=== PATIENT | female | born 1960 | race African-American/Black ===

== ENCOUNTER → 2017-03-27 | Outpatient (CLI) | payer BC ==
--- NOTE | 2017-03-27 12:38 | WOMENS IMAGING REPORT ---
EXAM DESCRIPTION: BILAT SCREENING MAMMO W/CAD COMPLETED DATE/TIME: 03/27/2017 9:38 am REASON FOR STUDY: Z12.31, ROUTINE SCREENING MAMMO Z12.31 ENCNTR SCREEN MAMMOGRAM FOR MALIGNANT NEOP LASM OF FREYA COMPARISON: 10/10/2013. TECHNIQUE: Standard craniocaudal and mediolateral oblique views of each breast recorded using digita l acquisition. LIMITATIONS: None. FINDINGS: No masses, calcifications or architectural distortion. No areas of suspicion. Read with the assistance of CAD. .[facility] - R2 Cenova Version 1.3 .[facility] Imaging - R2 Cenova Version 1.3 .[facility] Imaging - R2 Cenova Version 2.4 .[facility] [place] [facility] - R2 Cenova Version 2.4 .[facility] - R2 [employer] Version 9.2 IMPRESSION: NORMAL MAMMOGRAM. BIRADS 1. BREAST DENSITY: b. There are scattered areas of fibroglandular density. BIRAD: 1 NEGATIVE RECOMMENDATION: ROUTINE SCREENING COMMENT: The patient has been notified of the results by letter per MQSA requirements. Additional no tification policies are in place for contacting patient with suspicious or incomplete findings. Quality ID #[id number]: The [employer] recommends an annual screening mammogram for women aged 40 years or over. This facility utilizes a reminder system to ensure that all patients receive reminder letters, and/or direct phone calls for appointments. This includes reminders for routine scr eening mammograms, diagnostic mammograms, or other Breast Imaging Interventions when appropriate. Th is patient will be placed in the appropriate reminder system. The [employer] (ACR) has developed recommendations for screening MRI of the breast s in certain patient populations, to be used in conjunction with mammography. Breast MRI surveillanc e may be appropriate for women with more than 20% lifetime risk of developing breast cancer as deter mined by genetic testing, significant family history of the disease, or history of mantle radiation f or Hodgkins Disease. ACR Practice Guidelines 2008. TECHNICAL DOCUMENTATION: FINDING NUMBER: (1) ASSESSMENT: (1) JOB ID: [id number] [employer]- All Rights Reserved
== END ==
LOC: WI 09:09
PROVIDERS: ATTEND Internal Medicine
DX: Z12.31 Encounter for screening mammogram for malignant neoplasm of breast (principal)
CPT/HCPCS: 77067; G0202

== ENCOUNTER 2017-04-20 10:40 | Observation (INO) | payer BC ==
[2017-04-20 12:39] LABS: HEMATOCRIT 36.2 % (36.0-47.0); HGB HCT DIFFERENCE -3.2; MEAN CORPUSCULAR HEMOGLOBIN 20.6 pg (27.0-33.4); MEAN CORPUSCULAR HGB CONC 30.3 g/dL (32.0-36.0); MEAN CORPUSCULAR VOLUME 68 fl (80-97); RED BLOOD COUNT 5.32 10^6/uL (3.72-5.28); RED CELL DISTRIBUTION WIDTH 15.8 % (11.5-14.0); WHITE BLOOD COUNT 5.7 10^3/uL (4.0-10.5)
[2017-04-20 13:01] LABS: ALANINE AMINOTRANSFERASE 28 U/L (9-52); ALBUMIN 3.9 g/dL (3.5-5.0); ALKALINE PHOSPHATASE 79 U/L (38-126); ANION GAP 8 (5-19); ASPARTATE AMINO TRANSFERASE 25 U/L (14-36); BILIRUBIN,DIRECT 0.2 mg/dL (0.0-0.4); BILIRUBIN,TOTAL 0.5 mg/dL (0.2-1.3); BLOOD UREA NITROGEN 12 mg/dL (7-20); CALCIUM 10.1 mg/dL (8.4-10.2); CARBON DIOXIDE 28 mmol/L (22-30); CHLORIDE 107 mmol/L (98-107); CREATINE KINASE 237 U/L (30-135); CREATININE RESULT 0.83 mg/dL (0.52-1.25); GLUCOSE 89 mg/dL (75-110); POTASSIUM 4.6 mmol/L (3.6-5.0); SODIUM 142.9 mmol/L (137-145); TOTAL PROTEIN 7.9 g/dL (6.3-8.2)
[2017-04-20 13:13] LABS: CREATINE KINASE MB 1.52 ng/mL (<4.55)
[2017-04-20 13:16] LABS: TROPONIN I < 0.012 ng/mL
[2017-04-20 13:31] LABS: THYROID STIMULATING HORMONE 1.19 uIU/mL (0.47-4.68)
[2017-04-20 14:58] LABS: APPEARANCE,URINE CLEAR; BILIRUBIN,URINE NEGATIVE (NEGATIVE); GLUCOSE, URINE NEGATIVE (NEGATIVE); KETONES,URINE NEGATIVE (NEGATIVE); LEUKOCYTE ESTERASE,URINE NEGATIVE (NEGATIVE); NITRITE,URINE NEGATIVE (NEGATIVE); PROTEIN,URINE NEGATIVE (NEGATIVE); URINE SPECIFIC GRAVITY 1.009; UROBILINOGEN,URINE NEGATIVE mg/dL (<2.0)
[2017-04-20] MEDS ORDERED: HYDROMORPHONE HCL INJ/PF 2 MG/ML AMPULE IV PRN (20:58)
[2017-04-20 21:08] LABS: CREATINE KINASE MB 1.13 ng/mL (<4.55); TROPONIN I < 0.012 ng/mL
--- NOTE | 2017-04-20 22:23 | EKG REPORT ---
SEVERITY:- OTHERWISE NORMAL ECG - SINUS RHYTHM ATRIAL PREMATURE COMPLEX : Confirmed by: Anaid Cunha 20-Apr-2017 22:22:45
[2017-04-21 05:42] LABS: TROPONIN I < 0.012 ng/mL
[2017-04-21] MEDS: ACETAMINOPHEN 325 MG TABLET PO PRN ×2 (07:44→15:46)
--- NOTE | 2017-04-21 08:09 | RADIOLOGY REPORT (SQ) ---
EXAM DESCRIPTION: CHEST PA/LAT COMPLETED DATE/TIME: 04/20/2017 7:27 pm REASON FOR STUDY: lumbar radiculopathy COMPARISON: July 2016 EXAM PARAMETERS: NUMBER OF VIEWS: two views TECHNIQUE: Digital Frontal and Lateral radiographic views of the chest acquired. RADIATION DOSE: NA LIMITATIONS: none FINDINGS: LUNGS AND PLEURA: No opacities, masses or pneumothorax. No pleural effusion. MEDIASTINUM AND HILAR STRUCTURES: No masses or contour abnormalities. HEART AND VASCULAR STRUCTURES: Heart normal size. No evidence for failure. BONES: No acute findings. HARDWARE: None in the chest. OTHER: No other significant finding. IMPRESSION: NO SIGNIFICANT RADIOGRAPHIC FINDING IN THE CHEST. TECHNICAL DOCUMENTATION: JOB ID: [id number] [employer]- All Rights Reserved
[2017-04-21] MEDS ORDERED: (PENDING PHARMACY ID) (Lisinopril/Hydrochlorothiazide [Lisinopril-Hctz 20-25 Mg Tab] 1 TAB PO SCH (10:00)
[2017-04-21] MEDS: LISINOPRIL 10 MG TABLET PO SCH (10:05)
[2017-04-21] MEDS: FERROUS SULFATE 325 MG TABLET PO SCH (10:05)
[2017-04-21] MEDS: HYDROCHLOROTHIAZIDE 25 MG TABLET PO SCH (10:05)
--- NOTE | 2017-04-21 14:16 | RADIOLOGY REPORT (SQ) ---
EXAM DESCRIPTION: MRI LUMBAR SPINE COMBO COMPLETED DATE/TIME: 04/20/2017 8:24 pm REASON FOR STUDY: lumbar radiculopathy COMPARISON: None. TECHNIQUE: Sagittal and Axial imaging includes T1, T1 post gadolinium, T2, STIR and gradient echo se quences. Coronal T2/HASTE imaging. CONTRAST TYPE AND DOSE: 20 mL Multihance. RENAL FUNCTION: Creatinine 0.83 LIMITATIONS: None. FINDINGS: VISUALIZED UPPER ABDOMEN: Limited evaluation. No acute or suspicious findings suggested. SEGMENTATION: No transitional anatomy. The lowest well-developed disc space is labeled L5-S1. ALIGNMENT: Anatomic. VERTEBRAE: Intact. No fractures. BONE MARROW: Mild fatty reactive vertebral body endplate changes anteriorly throughout the lumbar spi ne. DISC SIGNAL: Diffuse decreased T2 weighted intervertebral disc signal. POSTERIOR ELEMENTS: Generally intact. No pars defect evident. HARDWARE: None in the spine. CORD AND CONUS: Normal in size and signal intensity. Conus at the T12-L1 level. SOFT TISSUES: No aortic aneurysm seen. No bulky retroperitoneal adenopathy or mass. No paraspinal mas s or fluid. T11-12: At the upper edge of the field of view. No central or foraminal stenosis. Mild bilateral f acet hypertrophy. T12-L1: No central or foraminal stenosis. Mild bilateral facet hypertrophy. L1-L2: No significant spinal stenosis or exit foraminal stenosis. Mild bilateral facet hypertrophy L2-L3: No significant spinal stenosis or exit foraminal stenosis. Mild bilateral facet hypertrophy L3-L4: Mild diffuse posterior disc bulging and moderate bilateral facet and ligament hypertrophy caus e borderline central canal narrowing. No significant foraminal stenosis. L4-L5: Broad diffuse posterior disc bulge left greater than right and bulky bilateral facet hypertrop hy left greater than right is present. This causes borderline central canal narrowing and slightly a symmetric flattening of the thecal sac left greater than right at the level of the lateral recess con taining the proximal L5 nerve roots. This is best shown on axial T2 images 23 and 24. There is very mild posterior disc margin enhancement in this area on postcontrast axial T1 image 24. On STIR imag es there is fluid in the bilateral L4-5 facet joints and some edema in the soft tissues surrounding t he left L4-5 facet joint. Mild to moderate bilateral foraminal narrowing is present without exiting L4 nerve root impingement. No abnormal L4 nerve root contrast-enhancement. L5-S1: No significant spinal stenosis or exit foraminal stenosis. Mild bilateral facet hypertrophy SACRUM: Visualized upper sacrum intact. ENHANCEMENT: Minimal posterior disc margin enhancement at L4-5 along the annular tear. Bilateral L4- 5 facet joint synovial enhancement and soft tissue enhancement around the left L4-5 facet joint. OTHER: No other significant findings. IMPRESSION: Degenerative changes most pronounced at L4-5 as above. TECHNICAL DOCUMENTATION: JOB ID: [id number] [employer]- All Rights Reserved
[2017-04-21] MEDS ORDERED: METHYLPREDNISOLONE INJ 125 MG/2 ML SDV IV ONE (15:30)
[2017-04-21] MEDS ORDERED: METHYLPREDNISOLONE INJ 125 MG/2 ML SDV ONE (15:50)
--- NOTE | 2017-04-21 18:17 | PDOC H&P ---
History of Present Illness Admission Date/PCP: 04/21/17 01:49 CANDIDA ROCK MD History of Present Illness: PADMINI MCARTHUR is a 56 year old female, she came to the office for evaluation of chest pain, back pain with radiculopathy, the chest pain was atypical in character, she was more concerned about the back pain with radicular symptoms going down the legs and affecting ambulation. She was admitted directly from the office into the hospital for evaluation of her symptoms. MRI of the lumbar spine was done, showed broad diffuse posterior bulge left more than right, bulky bilateral facet hypertrophy left more than right. This causes borderline central canal narrowing slightly asymmetric flattening of thecal sac left more than right at the level of lateral recess. Also found was posterior disc margin enhancement. There is fluid in the bilateral L4-L5 facet joint also some edema in the soft tissues surrounding the left L4-L5 facet joint. There is mild to moderate bilateral foraminal narrowing. She was also admitted to rule out acute coronary syndrome, cardiac enzymes were negative for acute myocardial infarction Past Medical History Cardiac Medical History: Reports: Hyperlipidema, Hypertension Pulmonary Medical History: Reports: Asthma Hematology: Reports: Anemia Past Surgical History Past Surgical History: Reports: Tubal Ligation Social History Smoking Status: Never Smoker Frequency of Alcohol Use: None Hx Recreational Drug Use: No Hx Prescription Drug Abuse: No Family History Family History: Reviewed & Not Pertinent Parental Family History Reviewed: Yes Children Family History Reviewed: Yes Sibling(s) Family History Reviewed.: Yes Medication/Allergy Home Medications: Ferrous Sulfate [Feosol 325 mg Tablet] 325 mg PO DAILY 04/20/17 Lisinopril/Hydrochlorothiazide [Lisinopril-Hctz 20-25 mg Tab] 1 tab PO DAILY Allergies/Adverse Reactions: Penicillins Allergy (Verified 03/25/13 09:55) Review of Systems Constitutional: ABSENT: as per HPI, anorexia, chills, fatigue, fever(s), headache(s), night sweats, weakness, weight gain, weight loss, other Eyes: ABSENT: visual disturbances Ears: ABSENT: hearing changes Cardiovascular: PRESENT: chest pain Respiratory: ABSENT: cough, hemoptysis Gastrointestinal: ABSENT: abdominal pain, constipation, diarrhea, hematemesis, hematochezia, nausea, vomiting Genitourinary: ABSENT: dysuria, hematuria Musculoskeletal: PRESENT: as per HPI Integumentary: ABSENT: rash, wounds Neurological: ABSENT: abnormal gait, abnormal speech, confusion, dizziness, focal weakness, syncope Psychiatric: ABSENT: anxiety, depression, homidical ideation, suicidal ideation Endocrine: ABSENT: cold intolerance, heat intolerance, menstrual abnormalities, polydipsia, polyuria Hematologic/Lymphatic: ABSENT: easy bleeding, easy bruising, lymphadenopathy Physical Exam Vital Signs: Temp Pulse Resp BP Pulse Ox 97.9 F 52 L 18 144/66 H 98 04/21/17 11:44 04/21/17 14:00 04/21/17 11:44 04/21/17 11:44 04/21/17 11:44 Intake & Output 04/20/17 04/21/17 04/22/17 06:59 06:59 06:59 Intake Total 525 1173 Output Total 3 Balance 525 1170 Weight 100.4 kg General appearance: PRESENT: no acute distress, well-developed, well-nourished Head exam: PRESENT: atraumatic, normocephalic Eye exam: PRESENT: conjunctiva pink, EOMI, PERRLA. ABSENT: scleral icterus Ear exam: PRESENT: normal external ear exam Mouth exam: PRESENT: moist, tongue midline Neck exam: PRESENT: full ROM Respiratory exam: PRESENT: clear to auscultation lorena Cardiovascular exam: PRESENT: RRR, +S1, +S2 Pulses: PRESENT: normal dorsalis pedis pul, +2 pedal pulses bilateral Vascular exam: PRESENT: normal capillary refill GI/Abdominal exam: PRESENT: normal bowel sounds, soft Rectal exam: PRESENT: deferred Neurological exam: PRESENT: alert, awake, oriented to person, oriented to place , oriented to time, oriented to situation, CN II-XII grossly intact. ABSENT: motor sensory deficit Psychiatric exam: PRESENT: appropriate affect, normal mood. ABSENT: homicidal ideation, suicidal ideation Skin exam: PRESENT: dry, intact, warm Results Laboratory Results: 04/20/17 12:30 04/20/17 12:30 04/20/17 04/20/17 04/20/17 12:30 12:30 20:24 Creatine Kinase 237 H 217 H CK-MB (CK-2) 1.52 Troponin I < 0.012 04/20/17 04/21/17 04/21/17 20:24 04:45 04:45 Creatine Kinase 164 H CK-MB (CK-2) 1.13 0.90 Troponin I < 0.012 < 0.012 Impressions: Chest X-Ray 04/20/17 00:00 IMPRESSION: NO SIGNIFICANT RADIOGRAPHIC FINDING IN THE CHEST. Lumbar Spine MRI 04/20/17 00:00 IMPRESSION: Degenerative changes most pronounced at L4-5 as above. Assessment & Plan - Diagnosis (1) Spinal stenosis of lumbar region with radiculopathy Is this a current diagnosis for this admission?: YesPlan: She is admitted for evaluation and management of the lumbar stenosis (2) Chest pain Qualifiers: Chest pain type: unspecified Qualified Code(s): R07.9 - Chest pain, unspecified Is this a current diagnosis for this admission?: Yes
--- NOTE | 2017-04-21 18:25 | PDOC DISCHARGE SUMMARY ---
General - Admit/Disc Date/PCP Admission Date/Primary Care Provider: 04/21/17 01:49 CANDIDA ROCK MD Discharge Date: 04/21/17 - Discharge Diagnosis (1) Spinal stenosis of lumbar region with radiculopathy Is this a current diagnosis for this admission?: Yes (2) Chest pain Is this a current diagnosis for this admission?: Yes - Additional Information Discharge Diet: Regular Discharge Activity: Activity As Tolerated Home Medications: Ferrous Sulfate [Feosol 325 mg Tablet] 325 mg PO DAILY 04/20/17 Lisinopril/Hydrochlorothiazide [Lisinopril-Hctz 20-25 mg Tab] 1 tab PO DAILY Prednisone 10 mg PO DAILY #12 tablet 04/21/17 Pregabalin [Lyrica 50 Mg Capsule] 50 mg PO Q8H #90 capsule 04/21/17 History of Present Illness History of Present Illness: PADMINI MCARTHUR is a 56 year old female, she came to the office for evaluation of chest pain, back pain with radiculopathy, the chest pain was atypical in character, she was more concerned about the back pain with radicular symptoms going down the legs and affecting ambulation. She was admitted directly from the office into the hospital for evaluation of her symptoms. MRI of the lumbar spine was done, showed broad diffuse posterior bulge left more than right, bulky bilateral facet hypertrophy left more than right. This causes borderline central canal narrowing slightly asymmetric flattening of thecal sac left more than right at the level of lateral recess. Also found was posterior disc margin enhancement. There is fluid in the bilateral L4-L5 facet joint also some edema in the soft tissues surrounding the left L4-L5 facet joint. There is mild to moderate bilateral foraminal narrowing. She was also admitted to rule out acute coronary syndrome, cardiac enzymes were negative for acute myocardial infarction Hospital Course Hospital Course: She was admitted for observation, she has lumbar radiculopathy, MRI confirmed spinal stenosis. She also had chest pain, 3 sets of enzymes were negative for acute OR. She was treated with IV Solu-Medrol and Toradol Physical Exam Vital Signs: Temp Pulse Resp BP Pulse Ox 97.9 F 52 L 18 144/66 H 98 04/21/17 11:44 04/21/17 14:00 04/21/17 11:44 04/21/17 11:44 04/21/17 11:44 Intake & Output 04/20/17 04/21/17 04/22/17 06:59 06:59 06:59 Intake Total 525 1173 Output Total 3 Balance 525 1170 Weight 100.4 kg General appearance: PRESENT: no acute distress, well-developed, well-nourished Head exam: PRESENT: atraumatic, normocephalic Eye exam: PRESENT: conjunctiva pink, EOMI, PERRLA. ABSENT: scleral icterus Ear exam: PRESENT: normal external ear exam Mouth exam: PRESENT: moist, tongue midline Neck exam: PRESENT: full ROM Respiratory exam: PRESENT: clear to auscultation lorena Cardiovascular exam: PRESENT: RRR, +S1, +S2 Vascular exam: PRESENT: normal capillary refill GI/Abdominal exam: PRESENT: normal bowel sounds, soft Rectal exam: PRESENT: deferred Neurological exam: PRESENT: alert, awake, oriented to person, oriented to place , oriented to time, oriented to situation, CN II-XII grossly intact. ABSENT: motor sensory deficit Psychiatric exam: PRESENT: appropriate affect, normal mood Skin exam: PRESENT: dry, intact, warm Results Laboratory Results: 04/20/17 12:30 04/20/17 12:30 04/20/17 04/20/17 04/20/17 12:30 12:30 20:24 Creatine Kinase 237 H 217 H CK-MB (CK-2) 1.52 Troponin I < 0.012 04/20/17 04/21/17 04/21/17 20:24 04:45 04:45 Creatine Kinase 164 H CK-MB (CK-2) 1.13 0.90 Troponin I < 0.012 < 0.012 Impressions: Chest X-Ray 04/20/17 00:00 IMPRESSION: NO SIGNIFICANT RADIOGRAPHIC FINDING IN THE CHEST. Lumbar Spine MRI 04/20/17 00:00 IMPRESSION: Degenerative changes most pronounced at L4-5 as above.
[2017-04-21] MEDS ORDERED: KETOROLAC TROMETHAMINE INJ/PF 30 MG/1 ML SDV IV ONE (19:00)
[2017-04-21] MEDS: METHYLPREDNISOLONE INJ 125 MG/2 ML SDV IV SCH (21:30)
[2017-04-22] MEDS: KETOROLAC TROMETHAMINE INJ/PF 30 MG/1 ML SDV IV SCH ×3 (01:14→11:29)
[2017-04-22] MEDS: METHYLPREDNISOLONE INJ 125 MG/2 ML SDV IV SCH ×2 (06:29→14:15)
[2017-04-22] MEDS: FERROUS SULFATE 325 MG TABLET PO SCH (11:28)
[2017-04-22] MEDS: HYDROCHLOROTHIAZIDE 25 MG TABLET PO SCH (11:28)
[2017-04-22] MEDS: LISINOPRIL 10 MG TABLET PO SCH (11:29)
[2017-04-22 11:38] LABS: CREATININE URINE 68.5 mg/dL (Not Estab.); MICROALBUMIN URINE 3.1 ug/mL (Not Estab.)
[2017-04-22 13:39] VITALS: BP 138/63
== END 2017-04-22 14:36 | disposition home or self-care (01) ==
LOC: 3S 10:40 → UNDOADMOB 10:40 → 3S 04-21 01:49
PROVIDERS: ADMIT Internal Medicine; ATTEND Internal Medicine
DX: R07.89 Other chest pain (principal); M51.16 Intervertebral disc disorders with radiculopathy, lumbar region; M48.06 Spinal stenosis, lumbar region; I10 Essential (primary) hypertension; D64.9 Anemia, unspecified; R06.00 Dyspnea, unspecified; J45.909 Unspecified asthma, uncomplicated; Z79.899 Other long term (current) drug therapy
CPT/HCPCS: 82043; 82570; 36415 ×2; 84439; 82553 ×2; 82550 ×2; 84443; 85027; 80076; 80048; 81001; 84484 ×2; 72158; 71020; 93005; 93010; A9577; J2930 ×2; J1885 ×2; G0378; G0379

== ENCOUNTER 2017-05-17 14:54 | Emergency (ER) | payer BC ==
[2017-05-17] MEDS ORDERED: ONDANSETRON 4 MG TAB.RAPDIS PO ONE (16:04)
--- NOTE | 2017-05-17 16:05 | ER Document Report ---
ED Medical Screen (RME) - General Chief Complaint: Dizziness Stated Complaint: VOMITING Time Seen by Provider: 05/17/17 15:57 Mode of Arrival: Ambulatory Information source: Patient TRAVEL OUTSIDE OF THE [place] IN LAST 30 DAYS: No - HPI Onset: This morning Onset/Duration: Gradual Quality of pain: No pain Associated Symptoms: Nausea, Vomiting Exacerbated by: Denies Relieved by: Denies Notes: 05/17/17 16:04 Patient is a 56-year-old female who presents with several hours of dizziness and 2 episodes of vomiting. No chest pain or shortness of breath. No fevers or chills. No known ill contacts or recent travel. No syncope. Patient is able to tolerate oral intake. 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" Renal/ Medical History: Denies: Hx Peritoneal Dialysis Past Surgical History: Reports: Hx Abdominal Surgery - Hernia Repair, Hx Tubal Ligation - Immunizations Hx Diphtheria, Pertussis, Tetanus Vaccination: No - 2013 Review of Systems - Review of Systems Gastrointestinal: Nausea, Vomiting Neurological/Psychological: Other - Dizziness -: Yes All other systems reviewed and negative Physical Exam - Vital signs Vitals: Temp Pulse Resp BP Pulse Ox 97.7 F 54 L 16 150/61 H 97 05/17/17 15:08 05/17/17 15:08 05/17/17 15:08 05/17/17 15:08 05/17/17 15:08 Interpretation: Normal - General General appearance: Appears well, Alert - HEENT Head: Normocephalic, Atraumatic Eyes: Normal Pupils: PERRL - Respiratory Respiratory status: No respiratory distress Chest status: Nontender Breath sounds: Normal Chest palpation: Normal - Cardiovascular Rhythm: Regular Heart sounds: Normal auscultation Murmur: No - Abdominal Inspection: Normal Distension: No distension Bowel sounds: Normal Tenderness: Nontender Organomegaly: No organomegaly - Back Back: Normal, Nontender - Extremities General upper extremity: Normal inspection, Nontender, Normal color, Normal ROM , Normal temperature General lower extremity: Normal inspection, Nontender, Normal color, Normal ROM , Normal temperature, Normal weight bearing. No: Karla's sign - Neurological Neuro grossly intact: Yes Cognition: Normal Orientation: AAOx4 [place] Coma Scale Eye Opening: Spontaneous [place] Coma Scale Verbal: Oriented Rajesh Coma Scale Motor: Obeys Commands [place] Coma Scale Total: 15 Speech: Normal Motor strength normal: LUE, RUE, LLE, RLE Sensory: Normal - Psychological Associated symptoms: Normal affect, Normal mood - Skin Skin Temperature: Warm Skin Moisture: Dry Skin Color: Normal Course - Vital Signs Vital signs: Temp Pulse Resp BP Pulse Ox 97.7 F 54 L 16 150/61 H 97 05/17/17 15:08 05/17/17 15:08 05/17/17 15:08 05/17/17 15:08 05/17/17 15:08
[2017-05-17 16:52] LABS: ABSOLUTE EOSINOPHILS # (AUTO) 0.2 10^3/uL (0.0-0.6); ABSOLUTE LYMPHOCYTES (AUTO) 1.4 10^3/uL (0.5-4.7); ABSOLUTE MONOCYTES (AUTO) 0.5 10^3/uL (0.1-1.4); ABSOLUTE NEUT (AUTO) 4.1 10^3/uL (1.7-8.2); BASOPHILS % (AUTO) 0.6 % (0-2); EOSINOPHILS % (AUTO) 2.7 % (0-6); HEMATOCRIT 38.8 % (36.0-47.0); HEMOGLOBIN 11.7 g/dL (12.0-15.5); HGB HCT DIFFERENCE -3.7; LYMPHOCYTES % (AUTO) 22.4 % (13-45); MEAN CORPUSCULAR HEMOGLOBIN 20.7 pg (27.0-33.4); MEAN CORPUSCULAR HGB CONC 30.2 g/dL (32.0-36.0); MEAN CORPUSCULAR VOLUME 69 fl (80-97); MONOCYTES % (AUTO) 8.1 % (3-13); RED BLOOD COUNT 5.67 10^6/uL (3.72-5.28); RED CELL DISTRIBUTION WIDTH 16.5 % (11.5-14.0); SEGMENTED NEUTROPHILS % (AUTO) 66.2 % (42-78); WHITE BLOOD COUNT 6.2 10^3/uL (4.0-10.5)
[2017-05-17 17:11] LABS: ALANINE AMINOTRANSFERASE 28 U/L (9-52); ALBUMIN 4.2 g/dL (3.5-5.0); ALKALINE PHOSPHATASE 80 U/L (38-126); ANION GAP 9 (5-19); ASPARTATE AMINO TRANSFERASE 25 U/L (14-36); BILIRUBIN,DIRECT 0.3 mg/dL (0.0-0.4); BILIRUBIN,TOTAL 0.5 mg/dL (0.2-1.3); BLOOD UREA NITROGEN 10 mg/dL (7-20); CALCIUM 10.1 mg/dL (8.4-10.2); CARBON DIOXIDE 29 mmol/L (22-30); CHLORIDE 105 mmol/L (98-107); CREATININE RESULT 0.74 mg/dL (0.52-1.25); GLUCOSE 89 mg/dL (75-110); POTASSIUM 4.5 mmol/L (3.6-5.0); SODIUM 142.9 mmol/L (137-145); TOTAL PROTEIN 8.3 g/dL (6.3-8.2)
[2017-05-17 17:27] LABS: APPEARANCE,URINE CLEAR; BILIRUBIN,URINE NEGATIVE (NEGATIVE); GLUCOSE, URINE NEGATIVE (NEGATIVE); KETONES,URINE NEGATIVE (NEGATIVE); LEUKOCYTE ESTERASE,URINE NEGATIVE (NEGATIVE); NITRITE,URINE NEGATIVE (NEGATIVE); PROTEIN,URINE NEGATIVE (NEGATIVE); URINE SPECIFIC GRAVITY 1.008; UROBILINOGEN,URINE NEGATIVE mg/dL (<2.0)
--- NOTE | 2017-05-17 18:32 | ER Document Report ---
ED Dizziness/Weakness - General Chief Complaint: Dizziness Stated Complaint: VOMITING Time Seen by Provider: 05/17/17 15:57 Mode of Arrival: Ambulatory Notes: The patient is a 56-year-old female who presents with feeling like the room is spinning over the past day. She vomited twice, but was not feeling nauseous prior to this. She has never had vertigo before. She is currently asymptomatic on my evaluation. She received 8 mg Zofran in triage prior to my arrival. Patient denies headache, ataxia, numbness, tingling, blurry vision, fevers, chest pain, shortness of breath, abdominal pain, urinary symptoms or head injury. TRAVEL OUTSIDE OF THE [place] IN LAST 30 DAYS: No - Related Data Allergies/Adverse Reactions: Penicillins Allergy (Verified 05/17/17 15:07) Past Medical History - General Information source: Patient, [facility] Records - Social History Smoking Status: Never Smoker Chew tobacco use (# tins/day): No Frequency of alcohol use: None Drug Abuse: None Family History: Reviewed & Not Pertinent Patient has suicidal ideation: No Patient has homicidal ideation: No - Past Medical History Cardiac Medical History: Reports: Hx Hypercholesterolemia, Hx Hypertension Pulmonary Medical History: Reports: Hx Asthma Endocrine Medical History: Reports: Hx Diabetes Mellitus Type 2 - "borderline" Renal/ Medical History: Denies: Hx Peritoneal Dialysis Past Surgical History: Reports: Hx Abdominal Surgery - Hernia Repair, Hx Tubal Ligation - Immunizations Hx Diphtheria, Pertussis, Tetanus Vaccination: No - 2012 Review of Systems - Review of Systems Notes: REVIEW OF SYSTEMS: CONSTITUTIONAL: -fevers, -chills EENT: -eye pain, -difficulty swallowing, -nasal congestion CARDIOVASCULAR:-chest pain, -syncope. RESPIRATORY: -cough, -SOB GASTROINTESTINAL: -abdominal pain, -nausea, +vomiting, -diarrhea GENITOURINARY: -dysuria, -hematuria MUSCULOSKELETAL: -back pain, -neck pain SKIN: -rash or skin lesions. HEMATOLOGIC: -easy bruising or bleeding. LYMPHATIC: -swollen, enlarged glands. NEUROLOGICAL: -altered mental status or loss of consciousness, -headache, + vertiginous symptoms PSYCHIATRIC: -anxiety, -depression. ALL OTHER SYSTEMS REVIEWED AND NEGATIVE. Physical Exam - Vital signs Vitals: Temp Pulse Resp BP Pulse Ox 97.7 F 54 L 16 150/61 H 97 05/17/17 15:08 05/17/17 15:08 05/17/17 15:08 05/17/17 15:08 05/17/17 15:08 - Notes Notes: PHYSICAL EXAMINATION: GENERAL: Well-appearing, well-nourished and in no acute distress. HEAD: Atraumatic, normocephalic. EYES: Pupils equal round and reactive to light, extraocular movements intact, sclera anicteric, conjunctiva are normal, no ENT: nares patent, oropharynx clear without exudates. Moist mucous membranes. NECK: Normal range of motion, supple without lymphadenopathy LUNGS: Breath sounds clear to auscultation bilaterally and equal. No wheezes rales or rhonchi. HEART: Regular rate and rhythm without murmurs ABDOMEN: Soft, nontender, normoactive bowel sounds. No guarding, no rebound. No masses appreciated. EXTREMITIES: Normal range of motion, no pitting or edema. No cyanosis. NEUROLOGICAL: Cranial nerves grossly intact. Normal speech, normal gait. Normal sensory and motor exams. PSYCH: Normal mood, normal affect. SKIN: Warm, Dry, normal turgor, no rashes or lesions noted. Course - Re-evaluation Re-evalutation: Patient is no longer having any symptoms. After Zofran, she is tolerating fluids. Pt has no posterior cerebellar signs on exam. No ataxia and walking with a steady gait. Labs are unremarkable. Will discharge patient home on meclizine, Zofran and instructions to follow with her primary care physician. - Vital Signs Vital signs: Temp Pulse Resp BP Pulse Ox 98.0 F 48 L 16 138/63 H 100 05/17/17 18:53 05/17/17 18:53 05/17/17 18:53 05/17/17 18:53 05/17/17 18:53 - Laboratory Result Diagrams: 05/17/17 16:40 05/17/17 16:40 Laboratory results interpreted by me: 05/17/17 05/17/17 16:40 16:40 RBC 5.67 H Hgb 11.7 L MCV 69 L MCH 20.7 L MCHC 30.2 L RDW 16.5 H Total Protein 8.3 H - EKG Interpretation by Nh EKG shows normal: Sinus rhythm, [place], Intervals, QRS Complexes, ST-T Waves Rate: Bradycardia Discharge - Discharge Clinical Impression: Vertiginous syndrome Qualifiers: Laterality: unspecified laterality Qualified Code(s): H81.90 - Unspecified disorder of vestibular function, unspecified ear Vomiting Qualifiers: Vomiting type: unspecified Vomiting Intractability: non-intractable Nausea presence: unspecified Qualified Code(s): R11.10 - Vomiting, unspecified Condition: Good Disposition: HOME, SELF-CARE Additional Instructions: Vertigo You have experienced an episode of vertigo -- a whirling dizziness which may be accompanied by nausea and vomiting or staggering. Vertigo is often caused by an irritation of the inner ear, in which case it is called labyrinthitis. It can also be a symptom of a degenerating inner ear, nerve damage, or brain injury. Your physician has evaluated you to determine whether any further testing is necessary. Vertigo is often treated with dramamine or meclizine. These medications are helpful, but stronger medication may be needed if you are vomiting. Rest in bed. You should not drive or operate machinery until completely better. It may take one to three weeks for recovery. If there are new symptoms, such as decreased hearing or vision, severe headache, weakness or faintness, or confusion, call the physician. Prescriptions: Meclizine HCl 25 mg PO Q8H PRN #15 tablet PRN Reason: Ondansetron [Zofran Odt 4 mg Tablet] 1 - 2 tab PO Q4H PRN #15 tab.rapdis PRN Reason: For Nausea/Vomiting Forms: Return to Work Referrals: CANDIDA ROCK MD [Primary Care Provider] - Follow up as needed
[2017-05-17 18:57] VITALS: BP 138/63
--- NOTE | 2017-05-17 19:46 | EKG REPORT ---
SEVERITY:- BORDERLINE ECG - SINUS RHYTHM LVH BY VOLTAGE : Confirmed by: Antoine Harris MD 17-May-2017 19:45:47
== END 2017-05-17 18:59 | disposition home or self-care (01) ==
LOC: ER 14:54
DX: H81.90 Unspecified disorder of vestibular function, unspecified ear (principal); R11.11 Vomiting without nausea; R00.1 Bradycardia, unspecified; I10 Essential (primary) hypertension; J45.909 Unspecified asthma, uncomplicated; Z88.0 Allergy status to penicillin
CPT/HCPCS: 93005; 99284; 36415; 85025; 80053; 81001; 84484; 93010; S0119

== ENCOUNTER → 2017-08-02 | Outpatient (CLI) | payer BC ==
--- NOTE | 2017-08-02 15:37 | RADIOLOGY REPORT (SQ) ---
EXAM DESCRIPTION: WRIST LEFT 3 VIEWS COMPLETED DATE/TIME: 08/02/2017 2:31 pm REASON FOR STUDY: PAIN IN LEFT WRIST (M25.532) M25.532 PAIN IN LEFT WRIST COMPARISON: None. NUMBER OF VIEWS: Three views. TECHNIQUE: AP, lateral, and oblique radiographic images acquired of the left wrist. LIMITATIONS: None. FINDINGS: MINERALIZATION: Normal. BONES: No acute fracture or dislocation. No worrisome bone lesions. Normal alignment. SOFT TISSUES: No soft tissue swelling. No foreign body. OTHER: No other significant finding. IMPRESSION: NEGATIVE STUDY OF THE LEFT WRIST. NO RADIOGRAPHIC EVIDENCE OF ACUTE INJURY. TECHNICAL DOCUMENTATION: JOB ID: [id number] [employer]- All Rights Reserved
== END ==
LOC: RAD 14:16
PROVIDERS: ATTEND Physician Assistant Medical
DX: M25.532 Pain in left wrist (principal)

== ENCOUNTER 2017-08-22 11:53 | Emergency (ER) | payer BC ==
[2017-08-22] MEDS ORDERED: HYDROCODONE/ACETAMINOPHEN 5-325 MG TABLET PO ONE (13:25)
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
[2017-08-22] MEDS ORDERED: ACETAMINOPHEN 325 MG TABLET ONE (13:34)
[2017-08-22] MEDS ORDERED: ACETAMINOPHEN 325 MG TABLET PO ONE (13:35)
[2017-08-22 13:42] VITALS: BP 159/78
== END 2017-08-22 13:42 | disposition home or self-care (01) ==
LOC: ER 11:53
DX: T25.132A Burn of first degree of left toe(s) (nail), initial encounter (principal); X12.XXXA Contact with other hot fluids, initial encounter; Y93.G3 Activity, cooking and baking; Y92.009 Unspecified place in unspecified non-institutional (private) residence as the place of occurrence of the external cause; M79.672 Pain in left foot; I10 Essential (primary) hypertension; J45.909 Unspecified asthma, uncomplicated; G89.29 Other chronic pain; Z88.0 Allergy status to penicillin
CPT/HCPCS: 99283

== ENCOUNTER 2017-12-18 11:45 | Emergency (ER) | payer BC ==
[2017-12-18 12:05] VITALS: BP 148/69
--- NOTE | 2017-12-18 13:32 | ER Document Report ---
ED General - General Chief Complaint: Leg Pain Stated Complaint: LEG PAIN Mode of Arrival: Ambulatory Information source: Patient TRAVEL OUTSIDE OF THE [place] IN LAST 30 DAYS: No - HPI Notes: 57-year-old female presents today with complaints of left knee and langley pain after she fell on her knee approximately 2 hours ago. Pain 6/10, throbbing and constant. Tried otc motrin without full relief. Reports some swelling. Has not tried any icing. denies previous injury of knee. Unable to bear full weight. Denies any n/t in affected limb. Worse with ambulation, better when at rest. denies hitting head or change in loc. Denies any cp, sob, n/v/d, abd pain, dysuria and hematuria. - Related Data Allergies/Adverse Reactions: Penicillins Allergy (Verified 08/22/17 12:00) Past Medical History - General Information source: Patient - Social History Smoking Status: Never Smoker Frequency of alcohol use: None Drug Abuse: None Family History: Reviewed & Not Pertinent Patient has suicidal ideation: No Patient has homicidal ideation: No - Past Medical History Cardiac Medical History: Reports: Hx Hypercholesterolemia, Hx Hypertension Pulmonary Medical History: Reports: Hx Asthma Endocrine Medical History: Reports: Hx Diabetes Mellitus Type 2 - "borderline" Renal/ Medical History: Denies: Hx Peritoneal Dialysis Musculoskeltal Medical History: Reports Hx Arthritis, Reports Hx Musculoskeletal Deformity, Reports Hx Musculoskeletal Trauma Past Surgical History: Reports: Hx Abdominal Surgery - Hernia Repair, Hx Tubal Ligation, Hx Umbilical Hernia - Immunizations Immunizations up to date: Yes Hx Diphtheria, Pertussis, Tetanus Vaccination: Yes - 2012 Review of Systems - Review of Systems Constitutional: No symptoms reported EENT: No symptoms reported Cardiovascular: No symptoms reported Respiratory: No symptoms reported Gastrointestinal: No symptoms reported Genitourinary: No symptoms reported Female Genitourinary: No symptoms reported Musculoskeletal: See HPI Skin: No symptoms reported Hematologic/Lymphatic: No symptoms reported Neurological/Psychological: No symptoms reported Physical Exam - Vital signs Vitals: Temp Pulse Resp BP Pulse Ox 98.1 F 72 16 148/69 H 98 12/18/17 12:04 12/18/17 12:04 12/18/17 12:04 12/18/17 12:04 12/18/17 12:04 Interpretation: Normal - Notes Notes: PHYSICAL EXAMINATION: GENERAL: Well-appearing, well-nourished and in no acute distress. HEAD: Atraumatic, normocephalic. EYES: Pupils equal round and reactive to light, extraocular movements intact, conjunctiva are normal. ENT: Nares patent, oropharynx clear without exudates. Moist mucous membranes. NECK: Normal range of motion, supple without lymphadenopathy LUNGS: Breath sounds clear to auscultation bilaterally and equal. No wheezes rales or rhonchi. HEART: Regular rate and rhythm without murmurs ABDOMEN: Soft, nontender, nondistended abdomen. No guarding, no rebound. No masses appreciated. Female : deferred Musculoskeletal: Normal range of motion, no pitting or edema. No cyanosis.left knee pain with palpation to medical and lateral aspect of knee. noted tenderness to left proximal tibia and fibula on palpation. No step-off appreciated. negative negin's sign. anterior and posterior drawer test negative.Dtr + 2 in BLE. Full motor and sensory function. Negative lachmans test and posterior/anterior drawer test. No open wounds. No induration or drainage. pulses + 2 bilaterally and equally. NEUROLOGICAL: Cranial nerves grossly intact. Normal speech, normal gait. Normal sensory, motor exams PSYCH: Normal mood, normal affect. SKIN: Warm, Dry, normal turgor, no rashes or lesions noted. Course - Re-evaluation Re-evalutation: Rechecked the patient who is resting comfortably. On re-exam, patient is symptomatically improved. Discussed the results of the radiology as well as the diagnosis at great length. Patient likely has a left knee and langley sprain, patient was placed in a knee immobilizer and given crutches. Advised to follow- up with store specialist within 1 week. Follow-up with PCP within 1 week as well. Advised to elevate, follow R ICE therapy, take ibuprofen and Tylenol as needed for the pain discussed the need to return to the ER for any new or worsening sx. Patient understands to take the Rx as directed. All questions answered. Patient comfortable with the decision to go home. - Vital Signs Vital signs: Temp Pulse Resp BP Pulse Ox 98.1 F 72 16 148/69 H 98 12/18/17 12:04 12/18/17 12:04 12/18/17 12:04 12/18/17 12:04 12/18/17 12:04 Discharge - Discharge Clinical Impression: left langley sprain Left knee sprain Qualifiers: Encounter type: initial encounter Involved ligament of knee: other ligament Qualified Code(s): S83.8X2A - Sprain of other specified parts of left knee, initial encounter Clinical Impression: (Ruled Out): Left ankle sprain Condition: Good Disposition: HOME, SELF-CARE Instructions: Use of Crutches ([facility]), Knee Immobilizing Splint ([facility]), Sprained Knee ([facility]) Additional Instructions: sprained Knee Your sprained knee results from a stretching or tearing of the ligaments which support the joint. This often results from a bending stress -- such as a twisting fall while skiing or a "clip" while playing football. The ligaments will require time and protection to heal adequately. A knee sprain can be quite serious, and should be taken seriously. The usual treatment is splinting of the knee, ice packs, and elevation. You shouldn't walk on the leg if weightbearing is painful. Unless the sprain is obviously a minor one, follow-up exam is very important. The degree of ligament damage often cannot be fully assessed at first due to muscle spasm and pain. Your treatment plan may change based on the physician's findings during your follow-up examination. Call the doctor at once if there is severe swelling, increasing pain, numbness, or other alarming symptoms. Please follow up with the Orthopedics [facility] [address] [place] [id number] Forms: Return to Work Referrals: NITHIN CISNEROS DO [ACTIVE STAFF] - Follow up in 3-5 days CANDIDA ROCK MD [Primary Care Provider] - Follow up as needed
[2017-12-18] MEDS ORDERED: KETOROLAC TROMETHAMINE 60 MG/2 ML SDV IM ONE (13:33)
--- NOTE | 2017-12-18 14:48 | RADIOLOGY REPORT (SQ) ---
EXAM DESCRIPTION: TIBIA FIBULA LEFT COMPLETED DATE/TIME: 12/18/2017 2:21 pm REASON FOR STUDY: s/p fall. +knee/tibfib pain COMPARISON: None. NUMBER OF VIEWS: Two views. TECHNIQUE: Two radiographic images acquired of the left tibia and fibula to include the knee and ank le in at least one projection. LIMITATIONS: None. FINDINGS: MINERALIZATION: Normal. BONES: No acute fracture or dislocation. No worrisome bone lesions. SOFT TISSUES: No obvious swelling or foreign body. OTHER: No other significant finding. IMPRESSION: NEGATIVE STUDY OF THE LEFT TIBIA AND FIBULA. NO RADIOGRAPHIC EVIDENCE OF ACUTE INJURY. TECHNICAL DOCUMENTATION: JOB ID: [id number] [employer]- All Rights Reserved
--- NOTE | 2017-12-18 16:09 | RADIOLOGY REPORT (SQ) ---
EXAM DESCRIPTION: KNEE LEFT 4 VIEW COMPLETED DATE/TIME: 12/18/2017 3:51 pm REASON FOR STUDY: PAIN COMPARISON: None. NUMBER OF VIEWS: Four views. TECHNIQUE: AP, lateral, and both oblique radiographic images acquired of the left knee. LIMITATIONS: None. FINDINGS: MINERALIZATION: Normal. BONES: No acute fracture or dislocation. No worrisome bone lesions. Mild medial compartment osteophyt es. JOINT: No effusion. No chondrocalcinosis. OTHER: No other significant finding. IMPRESSION: Mild osteoarthritis. TECHNICAL DOCUMENTATION: JOB ID: [id number] [employer]- All Rights Reserved
== END 2017-12-18 16:38 | disposition home or self-care (01) ==
LOC: ER 11:45
DX: S83.8X2A Sprain of other specified parts of left knee, initial encounter (principal); M79.605 Pain in left leg; M25.562 Pain in left knee; W19.XXXA Unspecified fall, initial encounter
CPT/HCPCS: 99283; 96372; 73562; 73590; L1830; J1885

== ENCOUNTER 2018-04-05 12:54 | Emergency (ER) | payer OTHER, BC ==
[2018-04-05 13:01] VITALS: BP 158/88
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
[2018-04-05] MEDS ORDERED: HYDROCODONE/ACETAMINOPHEN 10-325 MG TABLET PO ONE (13:18)
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
== END 2018-04-05 14:49 | disposition home or self-care (01) ==
LOC: ER 12:54
DX: S46.912A Strain of unspecified muscle, fascia and tendon at shoulder and upper arm level, left arm, initial encounter (principal); R07.89 Other chest pain; M25.512 Pain in left shoulder; R51 Headache; M54.2 Cervicalgia; V49.60XA Unspecified car occupant injured in collision with unspecified motor vehicles in traffic accident, initial encounter; I10 Essential (primary) hypertension; J45.909 Unspecified asthma, uncomplicated; Z88.0 Allergy status to penicillin
CPT/HCPCS: 71046; 99284

== ENCOUNTER 2019-01-10 13:24 | Observation (INO) | payer BC ==
--- NOTE | 2019-01-10 14:05 | ER Document Report ---
ED Medical Screen (RME) - General Chief Complaint: Syncope Stated Complaint: SYNCOPE Time Seen by Provider: 01/10/19 14:04 Primary Care Provider: CANDIDA ROCK MD [Primary Care Provider] - Follow up as needed Mode of Arrival: Ambulatory Information source: Patient Notes: 58-year-old female with a history of hypertension who presents to the emergency room after a syncopal event at home. Patient does states she had a syncopal event 3 days ago. She does states she has had intermittent chest pain lately. TRAVEL OUTSIDE OF THE [place] IN LAST 30 DAYS: No - Related Data Allergies/Adverse Reactions: Penicillins Allergy (Verified 08/22/17 12:00) Past Medical History - Social History Chew tobacco use (# tins/day): No Frequency of alcohol use: None Drug Abuse: None Family history: Arthritis, CVA, DM, Hyperlipidemia, Hypertension, Malignancy, Thyroid Disfunction - Past Medical History Cardiac Medical History: Reports: Hx Hypercholesterolemia, Hx Hypertension Pulmonary Medical History: Reports: Hx Asthma Endocrine Medical History: Reports: Hx Diabetes Mellitus Type 2 - "borderline" Renal/ Medical History: Denies: Hx Peritoneal Dialysis Musculoskeltal Medical History: Reports Hx Arthritis, Reports Hx Musculoskeletal Deformity, Reports Hx Musculoskeletal Trauma Past Surgical History: Reports: Hx Abdominal Surgery - Hernia Repair, Hx Tubal Ligation, Hx Umbilical Hernia - Immunizations Immunizations up to date: Yes Hx Diphtheria, Pertussis, Tetanus Vaccination: Yes - 2012 Physical Exam - Vital signs Vitals: Temp Pulse Resp BP Pulse Ox 98.1 F 54 L 17 164/71 H 100 01/10/19 13:31 01/10/19 13:31 01/10/19 13:31 01/10/19 13:31 01/10/19 13:31 Course - Vital Signs Vital signs: Temp Pulse Resp BP Pulse Ox 98.1 F 54 L 17 164/71 H 100 01/10/19 13:31 01/10/19 13:31 01/10/19 13:31 01/10/19 13:31 01/10/19 13:31 Doctor's Discharge - Discharge Referrals: CANDIDA ROCK MD [Primary Care Provider] - Follow up as needed
[2019-01-10] MEDS ORDERED: ONDANSETRON 4 MG TAB.RAPDIS PO ONE (14:06)
[2019-01-10 15:01] LABS: ABSOLUTE BASOPHILS # (AUTO) 0.1 10^3/uL (0.0-0.2); ABSOLUTE EOSINOPHILS # (AUTO) 0.1 10^3/uL (0.0-0.6); ABSOLUTE LYMPHOCYTES (AUTO) 1.3 10^3/uL (0.5-4.7); ABSOLUTE MONOCYTES (AUTO) 0.3 10^3/uL (0.1-1.4); ABSOLUTE NEUT (AUTO) 3.8 10^3/uL (1.7-8.2); BASOPHILS % (AUTO) 1.6 % (0-2); EOSINOPHILS % (AUTO) 2.2 % (0-6); HEMATOCRIT 39.8 % (36.0-47.0); HEMOGLOBIN 12.4 g/dL (12.0-15.5); LYMPHOCYTES % (AUTO) 22.7 % (13-45); MEAN CORPUSCULAR HEMOGLOBIN 20.9 pg (27.0-33.4); MEAN CORPUSCULAR HGB CONC 31.1 g/dL (32.0-36.0); MEAN CORPUSCULAR VOLUME 67 fl (80-97); MONOCYTES % (AUTO) 5.5 % (3-13); PLATELET COUNT 305 10^3/uL (150-450); RED BLOOD COUNT 5.93 10^6/uL (3.72-5.28); RED CELL DISTRIBUTION WIDTH 15.6 % (11.5-14.0); TOTAL CELLS COUNTED % (AUTO) 100 %; WHITE BLOOD COUNT 5.6 10^3/uL (4.0-10.5)
--- NOTE | 2019-01-10 15:06 | RADIOLOGY REPORT (SQ) ---
EXAM DESCRIPTION: CHEST SINGLE VIEW COMPLETED DATE/TIME: 01/10/2019 2:37 pm REASON FOR STUDY: syncope COMPARISON: None. EXAM PARAMETERS: NUMBER OF VIEWS: One view. TECHNIQUE: Single frontal radiographic view of the chest acquired. RADIATION DOSE: NA LIMITATIONS: None. FINDINGS: LUNGS AND PLEURA: No opacities, masses or pneumothorax. No pleural effusion. MEDIASTINUM AND HILAR STRUCTURES: No masses. Contour normal. HEART AND VASCULAR STRUCTURES: Heart normal in size. Normal vasculature. BONES: No acute findings. HARDWARE: None in the chest. OTHER: No other significant finding. IMPRESSION: NO ACUTE RADIOGRAPHIC FINDING IN THE CHEST. TECHNICAL DOCUMENTATION: JOB ID: [id number] [employer]- All Rights Reserved Reading location - IP/workstation name: [email or web address]
[2019-01-10 15:20] LABS: ALANINE AMINOTRANSFERASE 19 U/L (9-52); ALBUMIN 4.7 g/dL (3.5-5.0); ALKALINE PHOSPHATASE 84 U/L (38-126); ANION GAP 10 (5-19); ASPARTATE AMINO TRANSFERASE 36 U/L (14-36); BILIRUBIN,DIRECT 0.3 mg/dL (0.0-0.4); BILIRUBIN,TOTAL 0.5 mg/dL (0.2-1.3); BLOOD UREA NITROGEN 12 mg/dL (7-20); CALCIUM 11.1 mg/dL (8.4-10.2); CARBON DIOXIDE 30 mmol/L (22-30); CHLORIDE 104 mmol/L (98-107); CREATINE KINASE 470 U/L (30-135); GLUCOSE 118 mg/dL (75-110); POTASSIUM 4.5 mmol/L (3.6-5.0); SODIUM 143.8 mmol/L (137-145); TOTAL PROTEIN 8.5 g/dL (6.3-8.2)
[2019-01-10 15:39] LABS: CREATINE KINASE MB 1.71 ng/mL (<4.55)
[2019-01-10 15:46] LABS: TROPONIN I < 0.012 ng/mL
--- NOTE | 2019-01-10 16:33 | ER Document Report ---
ED General - General Chief Complaint: Syncope Stated Complaint: SYNCOPE Time Seen by Provider: 01/10/19 14:04 Primary Care Provider: CANDIDA ROCK MD [Primary Care Provider] - Follow up as needed Mode of Arrival: Ambulatory Notes: 58-year-old -[place] female to the emergency department for evaluation of passing out. Patient states that she fell out today. Of note, this happened a week and a half ago as well but she did not tell anyone. Had some mild chest pain. She states that she feels okay right now. Did not hit her head. Denies any neck pain or hip pain or other extremity injuries. Patient is followed by Dr. Rock. States that she was admitted about a year and a half ago to the hospital and thinks they did a workup on her but not really sure. Patient st ates that there is a strong family history of cancer and her brother had a heart attack TRAVEL OUTSIDE OF THE [place] IN LAST 30 DAYS: No - HPI Onset: Just prior to arrival Onset/Duration: Sudden Quality of pain: No pain Severity: Moderate Pain Level: Denies Associated symptoms: None Exacerbated by: Denies - Related Data Allergies/Adverse Reactions: Penicillins Allergy (Verified 08/22/17 12:00) Past Medical History - General Information source: Patient - Social History Smoking Status: Never Smoker Chew tobacco use (# tins/day): No Frequency of alcohol use: None Drug Abuse: None Family History: Reviewed & Not Pertinent Patient has suicidal ideation: No Patient has homicidal ideation: No - Past Medical History Cardiac Medical History: Reports: Hx Hypercholesterolemia, Hx Hypertension Pulmonary Medical History: Reports: Hx Asthma Endocrine Medical History: Reports: Hx Diabetes Mellitus Type 2 - "borderline" Renal/ Medical History: Denies: Hx Peritoneal Dialysis Musculoskeletal Medical History: Reports Hx Arthritis, Reports Hx Musculo skeletal Deformity, Reports Hx Musculoskeletal Trauma Past Surgical History: Reports: Hx Abdominal Surgery - Hernia Repair, Hx Tubal Ligation, Hx Umbilical Hernia - Immunizations Immunizations up to date: Yes Hx Diphtheria, Pertussis, Tetanus Vaccination: Yes - 2012 Review of Systems - Review of Systems Notes: Constitutional: denies: Chills, Diaphoresis, Fever, Malaise, Weakness EENT: denies: Eye discharge, Blurred vision, Tearing, Double vision, Nose congestion, Nose discharge, Throat swelling, Mouth pain Cardiovascular: denies: Palpitations, Heart racing, Orthopnea, Dyspnea, +Chest pain. +Syncope Respiratory: denies: Cough, Hurts to breathe, Wheezing, Shortness of breath Gastrointestinal: denies: Abdominal pain, Diarrhea, Nausea, Vomiting, Black stools, bright red blood in stool Genitourinary: denies: Burning, Dysuria, Discharge, Frequency, Flank pain, Hematuria Musculoskeletal: denies: Joint pain, Joint swelling, Muscle pain, Muscle stiffness, back pain Hematologic/Lymphatic: denies: Anemia, Easy bleeding, Easy bruising, Blood clots Neurological/Psychological: denies: Confusion, Dementia, Depression, Loss of con sciousness Skin: No lesions, no masses, no skin breakdown, no abscesses Physical Exam - Vital signs Vitals: Temp Pulse Resp BP Pulse Ox 98.1 F 54 L 17 164/71 H 100 01/10/19 13:31 01/10/19 13:31 01/10/19 13:31 01/10/19 13:31 01/10/19 13:31 Interpretation: Normal - General General appearance: Appears well, Alert - HEENT Head: Normocephalic, Atraumatic Eyes: Normal Pupils: PERRL - Respiratory Respiratory status: No respiratory distress Chest status: Nontender Breath sounds: Normal Chest palpation: Normal - Cardiovascular Rhythm: Regular Heart sounds: Normal auscultation Murmur: No - Abdominal Inspection: Normal Distension: No distension Bowel sounds: Normal Tenderness: Nontender Organomegaly: No organomegaly - Back Back: Normal, Nontender - Extremities General upper extremity: Normal inspection, Nontender, Normal color, Normal ROM, Normal temperature General lower extremity: Normal inspection, Nontender, Normal color, Normal ROM, Normal temperature, Normal weight bearing. No: Karla's sign - Neurological Neuro grossly intact: Yes Cognition: Normal Orientation: AAOx4 Rajesh Coma Scale Eye Opening: Spontaneous [place] Coma Scale Verbal: Oriented Rajesh Coma Scale Motor: Obeys Commands [place] Coma Scale Total: 15 Speech: Normal Motor strength normal: LUE, RUE, LLE, RLE Sensory: Normal - Psychological Associated symptoms: Normal affect, Normal mood - Skin Skin Temperature: Warm Skin Moisture: Dry Skin Color: Normal Course - Re-evaluation Re-evalutation: 01/10/19 18:14 At this time initial workup is unremarkable. Patient has had 2 syncopal episodes in the last 2 weeks. 01/10/19 18:18 Laboratory 01/10/19 01/10/19 01/10/19 14:41 14:41 14:41 WBC 5.6 RBC 5.93 H Hgb 12.4 Hct 39.8 MCV 67 L MCH 20.9 L MCHC 31.1 L RDW 15.6 H Plt Count 305 Seg Neutrophils % 68.0 Lymphocytes % 22.7 Monocytes % 5.5 Eosinophils % 2.2 Basophils % 1.6 Absolute Neutrophils 3.8 Absolute Lymphocytes 1.3 Absolute Monocytes 0.3 Absolute Eosinophils 0.1 Absolute Basophils 0.1 Sodium 143.8 Potassium 4.5 Chloride 104 Carbon Dioxide 30 Anion Gap 10 BUN 12 Creatinine 0.84 Est GFR ( Amer) > 60 Est GFR (Non-Af Amer) > 60 Glucose 118 H Calcium 11.1 H Total Bilirubin 0.5 Direct Bilirubin 0.3 Neonat Total Bilirubin Not Reportable Neonat Direct Bilirubin Not Reportable Neonat Indirect Bili Not Reportable AST 36 ALT 19 Alkaline Phosphatase 84 Creatine Kinase 470 H CK-MB (CK-2) 1.71 Troponin I < 0.012 Total Protein 8.5 H Albumin 4.7 Chest X-Ray 01/10/19 14:05 IMPRESSION: NO ACUTE RADIOGRAPHIC FINDING IN THE CHEST. - Vital Signs Vital signs: Temp Pulse Resp BP Pulse Ox 98.1 F 54 L 17 164/71 H 100 01/10/19 13:31 01/10/19 13:31 01/10/19 13:31 01/10/19 13:31 01/10/19 13:31 - Laboratory Result Diagrams: 01/10/19 14:41 01/10/19 14:41 Laboratory results interpreted by me: 01/10/19 01/10/19 14:41 14:41 RBC 5.93 H MCV 67 L MCH 20.9 L MCHC 31.1 L RDW 15.6 H Glucose 118 H Calcium 11.1 H Creatine Kinase 470 H Total Protein 8.5 H - EKG Interpretation by Ks EKG shows normal: Sinus rhythm, [place], Intervals, ST-T Waves Voltage: Consistant with LVH Discharge - Discharge Clinical Impression: Syncope and collapse Hypertension Qualifiers: Hypertension type: unspecified Qualified Code(s): I10 - Essential (primary) hypertension Condition: Good Disposition: ADMITTED INPATIENT Admitting Provider: Bethanie Unit Admitted: Telemetry Referrals: CANDIDA ROCK MD [Primary Care Provider] - Follow up as needed
--- NOTE | 2019-01-10 18:12 | EKG REPORT ---
SEVERITY:- ABNORMAL ECG - SINUS RHYTHM LEFT VENTRICULAR HYPERTROPHY : Confirmed by: Kelly Penny MD 10-Jan-2019 18:12:18
[2019-01-10 21:06] LABS: LIPASE 71.2 U/L (23-300); PHOSPHORUS 2.8 mg/dL (2.5-4.5)
[2019-01-10 21:28] LABS: INTERNATIONAL RATION (INR) 1.04; PROTHROMBIN TIME 14.1 SEC (11.4-15.4)
[2019-01-10 21:29] LABS: PARTIAL THROMBOPLASTIN TIME 22.2 SEC (23.5-35.8)
[2019-01-10] MEDS: ENOXAPARIN SODIUM INJ 40 MG/0.4 ML DISP.SYRIN SUBCUT SCH (21:34)
[2019-01-10] MEDS: MULTIVITAMIN TABLET PO SCH (21:34)
[2019-01-10] MEDS: NORMAL SALINE 1000 ML 1,000 ML IV PRN (21:36)
[2019-01-10 21:38] LABS: THYROID STIMULATING HORMONE 1.04 uIU/mL (0.47-4.68)
[2019-01-10 23:04] LABS: AMORPHOUS SEDIMENT,URINE TRACE /HPF; APPEARANCE,URINE SLIGHTLY-CLOUDY; BILIRUBIN,URINE NEGATIVE (NEGATIVE); COLOR,URINE YELLOW; GLUCOSE, URINE NEGATIVE (NEGATIVE); KETONES,URINE NEGATIVE (NEGATIVE); LEUKOCYTE ESTERASE,URINE LARGE (NEGATIVE); NITRITE,URINE NEGATIVE (NEGATIVE); PROTEIN,URINE NEGATIVE (NEGATIVE); URINE SPECIFIC GRAVITY 1.013
[2019-01-10 23:28] LABS: URINE AMPHETAMINES SCREEN NEGATIVE; URINE BARBITURATES SCREEN NEGATIVE; URINE BENZODIAZEPINES SCREEN NEGATIVE; URINE COCAINE SCREEN NEGATIVE; URINE MARIJUANA (THC) SCREEN NEGATIVE; URINE METHADONE SCREEN NEGATIVE; URINE PHENCYCLIDINE SCREEN NEGATIVE
[2019-01-11 02:35] LABS: CREATINE KINASE MB 1.41 ng/mL (<4.55)
[2019-01-11 02:41] LABS: TROPONIN I < 0.012 ng/mL
[2019-01-11] MEDS: NORMAL SALINE 1000 ML 1,000 ML IV PRN ×2 (05:57→23:03)
[2019-01-11 07:16] LABS: BASOPHILS % (AUTO) 0.8 % (0-2); TOTAL CELLS COUNTED % (AUTO) 100 %
[2019-01-11 07:27] LABS: ABSOLUTE EOSINOPHILS # (AUTO) 0.3 10^3/uL (0.0-0.6); ABSOLUTE LYMPHOCYTES (AUTO) 2.4 10^3/uL (0.5-4.7); ABSOLUTE MONOCYTES (AUTO) 0.4 10^3/uL (0.1-1.4); ABSOLUTE NEUT (AUTO) 2.8 10^3/uL (1.7-8.2); EOSINOPHILS % (AUTO) 4.6 % (0-6); LYMPHOCYTES % (AUTO) 40.3 % (13-45); MEAN CORPUSCULAR HGB CONC 31.4 g/dL (32.0-36.0); MEAN CORPUSCULAR VOLUME 67 fl (80-97); MONOCYTES % (AUTO) 7.1 % (3-13); PLATELET COUNT 241 10^3/uL (150-450); RED BLOOD COUNT 4.92 10^6/uL (3.72-5.28); RED CELL DISTRIBUTION WIDTH 15.4 % (11.5-14.0); SEGMENTED NEUTROPHILS % (AUTO) 47.2 % (42-78)
[2019-01-11 07:33] LABS: HEMOGLOBIN 10.3 g/dL (12.0-15.5)
[2019-01-11 07:47] LABS: ALANINE AMINOTRANSFERASE 17 U/L (9-52); ALBUMIN 3.6 g/dL (3.5-5.0); ALKALINE PHOSPHATASE 67 U/L (38-126); ANION GAP 9 (5-19); ASPARTATE AMINO TRANSFERASE 26 U/L (14-36); BILIRUBIN,DIRECT 0.2 mg/dL (0.0-0.4); BILIRUBIN,TOTAL 0.3 mg/dL (0.2-1.3); BLOOD UREA NITROGEN 10 mg/dL (7-20); CARBON DIOXIDE 26 mmol/L (22-30); CHLORIDE 108 mmol/L (98-107); CHOLESTEROL 172.82 mg/dL (0-200); GLUCOSE 134 mg/dL (75-110); POTASSIUM 4.5 mmol/L (3.6-5.0); TOTAL PROTEIN 6.7 g/dL (6.3-8.2); TRIGLYCERIDES 146 mg/dL (<150)
[2019-01-11 07:57] LABS: CREATINE KINASE MB 1.04 ng/mL (<4.55)
[2019-01-11 07:58] LABS: DIRECT LDL 118 mg/dL (<100)
[2019-01-11 07:59] LABS: TROPONIN I < 0.012 ng/mL
[2019-01-11] MEDS ORDERED: (PENDING PHARMACY ID) (Lisinopril/Hydrochlorothiazide [Zestoretic 20-25 Mg Tablet] 1 TAB) PO SCH (10:00)
[2019-01-11] MEDS: HYDROCHLOROTHIAZIDE 25 MG TABLET PO SCH (11:44)
[2019-01-11] MEDS: ENOXAPARIN SODIUM INJ 40 MG/0.4 ML DISP.SYRIN SUBCUT SCH (11:45)
[2019-01-11] MEDS: LISINOPRIL 10 MG TABLET PO SCH (11:45)
[2019-01-11] MEDS: MULTIVITAMIN TABLET PO SCH (11:45)
--- NOTE | 2019-01-11 13:39 | RADIOLOGY REPORT (SQ) ---
EXAM DESCRIPTION: NM PARATHYROID IMAGING COMPLETED DATE/TIME: 01/11/2019 1:09 pm REASON FOR STUDY: primary hyperparathyroidism COMPARISON: None. RADIONUCLIDE AND DOSE: 21.4 millicuries Tc-99m Sestamibi. The route of agent administration: Intravenous ADDITIONAL DRUGS AND DOSES: None. TECHNIQUE: Early and delayed images of the neck acquired following radionuclide administration. LIMITATIONS: None. FINDINGS: Thyroid: Normal size. There is a focus of increased uptake at the left lower pole thyroid which persists on delayed images. This could represent a thyroid adenoma or parathyroid adenomas. Parathyroid: There is a focus of increased uptake along the lower pole left lobe thyroid on delayed i mages. This could represent a thyroid adenoma or parathyroid adenoma Other: No other significant findings. IMPRESSION: Hyperfunctioning small nodule over the lower pole left lobe thyroid, could represent a t hyroid adenoma or parathyroid adenoma TECHNICAL DOCUMENTATION: JOB ID: [id number] [employer]- All Rights Reserved Reading location - IP/workstation name: [email or web address]
[2019-01-11] MEDS ORDERED: ACETAMINOPHEN 325 MG TABLET PO PRN (14:35)
[2019-01-11 14:39] LABS: TROPONIN I < 0.012 ng/mL
[2019-01-11] MEDS ORDERED: DEXTROSE 40% GEL 15 GM TUBE X 2 PO PRN (18:30)
[2019-01-11] MEDS ORDERED: DEXTROSE 50%-WATER SYRINGE 25 GM/50 ML DOSE IV PRN (18:30)
[2019-01-11] MEDS ORDERED: GLUCAGON,HUMAN RECOMB 1 MG INJ IM PRN (18:30)
[2019-01-11] MEDS ORDERED: DEXTROSE 40% GEL 15 GM TUBE PO PRN (18:30)
[2019-01-11] MEDS ORDERED: DEXTROSE 50%-WATER SYRINGE 12.5 GM/25 ML DOSE IV PRN (18:30)
--- NOTE | 2019-01-11 20:08 | PDOC H&P ---
History of Present Illness Admission Date/PCP: 01/10/19 19:16 CANDIDA ROCK MD History of Present Illness: PADMINI MCARTHUR is a 58 year old female, Patient came to the emergency room for evaluation of transient loss of consciousness, the circumstances of the loss of consciousness is not clear in the emergency room was evaluated. The comprehensive metabolic panel revealed hypercalcemia, the serum calcium was 11.1 this serum intact PTH was 164, this is consistent with primary hype rparathyroidism. He was also found to have undiagnosed diabetes mellitus, the fasting glucose was 134, hemoglobin A1c 7.3 this is consistent with diabetes mellitus. Past Medical History Cardiac Medical History: Reports: Hyperlipidema, Hypertension Pulmonary Medical History: Reports: Asthma Musculoskeltal Medical History: Reports: Arthritis Psychiatric Medical History: Reports: Depression Hematology: Reports: Anemia Past Surgical History Past Surgical History: Reports: Tubal Ligation Social History Smoking Status: Never Smoker Frequency of Alcohol Use: None Hx Recreational Drug Use: No Drugs: None Hx Prescription Drug Abuse: No Family History Family History: Reviewed & Not Pertinent Parental Family History Reviewed: Yes Children Family History Reviewed: Yes Sibling(s) Family History Reviewed.: Yes Medication/Allergy Home Medications: Ibuprofen [Motrin 800 mg Tablet] 800 mg PO Q8HP PRN 01/10/19 Lisinopril/Hydrochlorothiazide [Zestoretic 20-25 mg Tablet] 1 tab PO DAILY 01/10/19 Multivitamin [Multiple Vitamins] 1 tab PO DAILY 01/10/19 Allergies/Adverse Reactions: Penicillins Allergy (Verified 08/22/17 12:00) Review of Systems Constitutional: ABSENT: chills, fever(s), headache(s), weight gain, weight loss Eyes: ABSENT: visual disturbances Ears: ABSENT: hearing changes Cardiovascular: ABSENT: chest pain, dyspnea on exertion, edema, orthropnea, palpitations Respiratory: ABSENT: cough, hemoptysis Gastrointestinal: PRESENT: constipation. ABSENT: abdominal pain, diarrhea, hematemesis, hematochezia, nausea, vomiting Genitourinary: ABSENT: dysuria, hematuria Musculoskeletal: ABSENT: joint swelling Integumentary: ABSENT: rash, wounds Neurological: PRESENT: confusion. ABSENT: abnormal gait, abnormal speech, dizziness, focal weakness, syncope Psychiatric: ABSENT: anxiety, depression, homidical ideation, suicidal ideation Endocrine: ABSENT: cold intolerance, heat intolerance, menstrual abnormalities, polydipsia, polyuria Hematologic/Lymphatic: ABSENT: easy bleeding, easy bruising, lymphadenopathy Physical Exam Vital Signs: Temp Pulse Resp BP Pulse Ox 97.9 F 58 L 20 125/54 L 100 01/11/19 15:46 01/11/19 15:46 01/11/19 15:46 01/11/19 15:46 01/11/19 15:46 Intake & Output 01/10/19 01/11/19 01/12/19 06:59 06:59 06:59 Intake Total 1100 459 Balance 1100 459 Weight 105.4 kg General appearance: PRESENT: no acute distress Head exam: PRESENT: atraumatic, normocephalic Eye exam: PRESENT: conjunctiva pink, EOMI, PERRLA Mouth exam: PRESENT: moist, tongue midline Neck exam: PRESENT: full ROM Respiratory exam: PRESENT: clear to auscultation lorena Cardiovascular exam: PRESENT: RRR, +S1, +S2 Vascular exam: PRESENT: normal capillary refill GI/Abdominal exam: PRESENT: normal bowel sounds, soft Rectal exam: PRESENT: deferred Neurological exam: PRESENT: alert, CN II-XII grossly intact Psychiatric exam: PRESENT: appropriate affect, normal mood Skin exam: PRESENT: dry, intact, warm Results Laboratory Results: 01/11/19 07:00 01/11/19 07:00 01/10/19 01/10/19 01/10/19 19:30 19:30 20:55 WBC RBC Hgb Hct MCV MCH MCHC RDW Plt Count Seg Neutrophils % Lymphocytes % Monocytes % Eosinophils % Basophils % Absolute Neutrophils Absolute Lymphocytes Absolute Monocytes Absolute Eosinophils Absolute Basophils Sodium Potassium Chloride Carbon Dioxide Anion Gap BUN Creatinine Est GFR ( Amer) Est GFR (Non-Af Amer) Glucose Calcium Phosphorus 2.8 Magnesium 2.4 H Total Bilirubin AST ALT Alkaline Phosphatase Total Protein Albumin Triglycerides Cholesterol LDL Cholesterol Direct VLDL Cholesterol HDL Cholesterol Amylase 64 Lipase 71.2 TSH 1.04 Free T4 1.00 PTH Intact 164.3 H Urine Color Urine Appearance Urine pH Ur Specific [place] Urine Protein Urine Glucose (UA) Urine Ketones Urine Blood Urine Nitrite Ur Leukocyte Esterase Urine WBC (Auto) Urine RBC (Auto) 01/10/19 01/11/19 01/11/19 22:35 07:00 07:00 WBC 6.0 RBC 4.92 Hgb 10.3 L D Hct 33.0 L MCV 67 L MCH 21.0 L MCHC 31.4 L RDW 15.4 H Plt Count 241 Seg Neutrophils % 47.2 Lymphocytes % 40.3 Monocytes % 7.1 Eosinophils % 4.6 Basophils % 0.8 Absolute Neutrophils 2.8 Absolute Lymphocytes 2.4 Absolute Monocytes 0.4 Absolute Eosinophils 0.3 Absolute Basophils 0.0 Sodium 143.0 Potassium 4.5 Chloride 108 H Carbon Dioxide 26 Anion Gap 9 BUN 10 Creatinine 0.80 Est GFR ( Amer) > 60 Est GFR (Non-Af Amer) > 60 Glucose 134 H Calcium 10.0 Phosphorus Magnesium Total Bilirubin 0.3 AST 26 ALT 17 Alkaline Phosphatase 67 Total Protein 6.7 Albumin 3.6 Triglycerides 146 Cholesterol 172.82 LDL Cholesterol Direct 118 H VLDL Cholesterol 29.0 HDL Cholesterol 24 L Amylase Lipase TSH Free T4 PTH Intact Urine Color YELLOW Urine Appearance SLIGHTLY-CLOUDY Urine pH 7.0 Ur Specific [place] 1.013 Urine Protein NEGATIVE Urine Glucose (UA) NEGATIVE Urine Ketones NEGATIVE Urine Blood SMALL H Urine Nitrite NEGATIVE Ur Leukocyte Esterase LARGE H Urine WBC (Auto) 27 Urine RBC (Auto) 12 01/10/19 01/10/19 01/10/19 14:41 14:41 19:30 Creatine Kinase 470 H CK-MB (CK-2) 1.71 Troponin I < 0.012 < 0.012 NT-Pro-B Natriuret Pep 01/10/19 01/11/19 01/11/19 19:30 01:52 01:52 Creatine Kinase 387 H CK-MB (CK-2) 1.41 Troponin I < 0.012 NT-Pro-B Natriuret Pep 95 01/11/19 01/11/19 01/11/19 07:00 07:00 13:20 Creatine Kinase 312 H 290 H CK-MB (CK-2) 1.04 Troponin I < 0.012 NT-Pro-B Natriuret Pep 01/11/19 13:20 Creatine Kinase CK-MB (CK-2) 0.90 Troponin I < 0.012 NT-Pro-B Natriuret Pep Impressions: Parathyroid Scan Nuclear Medicine 01/10/19 00:00 IMPRESSION: Hyperfunctioning small nodule over the lower pole left lobe thyroid, could represent a thyroid adenoma or parathyroid adenoma Chest X-Ray 01/10/19 14:05 IMPRESSION: NO ACUTE RADIOGRAPHIC FINDING IN THE CHEST. Assessment & Plan - Diagnosis (1) Metabolic encephalopathy Is this a current diagnosis for this admission?: Yes Plan: She does metabolic encephalopathy this is probably from hypercalcemia the circumstances of the loss of consciousness is not clear it is most likely related to the hypercalcemia. She will be treated with normal saline. (2) Hypercalcemia Is this a current diagnosis for this admission?: Yes Plan: She has symptomatic hypercalcemia, this will be treated with normal saline infusion will monitor calcium very closely (3) Primary hyperparathyroidism Is this a current diagnosis for this admission?: Yes Plan: The hypercalcemia is PTH mediated consistent with primary hyperparathyroidism. Nuclear imaging of the parathyroid gland was obtained, it was consistent with parathyroid adenoma (4) Diabetes mellitus, new onset Is this a current diagnosis for this admission?: Yes Plan: She has newly diagnosed type 2 diabetes mellitus
--- NOTE | 2019-01-11 20:24 | PDOC DISCHARGE SUMMARY ---
General - Admit/Disc Date/PCP Admission Date/Primary Care Provider: 01/10/19 19:16 CANDIDA ROCK MD Discharge Date: 01/11/19 - Discharge Diagnosis (1) Metabolic encephalopathy Is this a current diagnosis for this admission?: Yes (2) Hypercalcemia Is this a current diagnosis for this admission?: Yes (3) Primary hyperparathyroidism Is this a current diagnosis for this admission?: Yes (4) Diabetes mellitus, new onset Is this a current diagnosis for this admission?: Yes - Additional Information Discharge Activity: Activity As Tolerated Prescriptions: Metformin HCl [Glucophage 500 mg Tablet] 500 mg PO BIDACBS #90 tablet Home Medications: Lisinopril/Hydrochlorothiazide [Zestoretic 20-25 mg Tablet] 1 tab PO DAILY 01/10/19 Acetaminophen [Tylenol 325 mg Tablet] 650 mg PO Q6HP PRN tablet 01/11/19 Dextrose 50%-Water [Dextrose Inj 50% Syringe (25 gm/50 ml)] 12.5 gm IV PRN PRN #0 disp.syrin 01/11/19 Dextrose [Glutose 40% Gel 15 gm Tube] 15 gm PO PRN PRN #0 tube 01/11/19 Metformin HCl [Glucophage 500 mg Tablet] 500 mg PO BIDACBS #90 tablet 01/11/19 History of Present Illness History of Present Illness: PADMINI MCARTHUR is a 58 year old female, Patient came to the emergency room for evaluation of transient loss of consciousness, the circumstances of the loss of consciousness is not clear in the emergency room was evaluated. The c omprehensive metabolic panel revealed hypercalcemia, the serum calcium was 11.1 this serum intact PTH was 164, this is consistent with primary hyperparathyroidism. She was also found to have undiagnosed diabetes mellitus, the fasting glucose was 134, hemoglobin A1c 7.3 this is consistent with diabetes mellitus. 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 She was also diagnosed with new onset type 2 diabetes mellitus, she was treated with metformin the hypercalcemia was treated with intravenous normal saline with normalization of serum calcium.She will follow with endocrine surgeon for resection of the adenoma of the parathyroid gland this will be arranged outpatient Physical Exam Vital Signs: Temp Pulse Resp BP Pulse Ox 97.9 F 58 L 20 125/54 L 100 01/11/19 15:46 01/11/19 15:46 01/11/19 15:46 01/11/19 15:46 01/11/19 15:46 Intake & Output 01/10/19 01/11/19 01/12/19 06:59 06:59 06:59 Intake Total 1100 459 Balance 1100 459 Weight 105.4 kg General appearance: PRESENT: no acute distress, well-developed, well-nourished Head exam: PRESENT: atraumatic, normocephalic Eye exam: PRESENT: conjunctiva pink, EOMI, PERRLA Ear exam: PRESENT: normal external ear exam Mouth exam: PRESENT: moist, tongue midline Neck exam: PRESENT: full ROM Respiratory exam: PRESENT: clear to auscultation lorena Cardiovascular exam: PRESENT: RRR, +S1, +S2 GI/Abdominal exam: PRESENT: normal bowel sounds, soft Rectal exam: PRESENT: deferred Neurological exam: PRESENT: alert, CN II-XII grossly intact Psychiatric exam: PRESENT: appropriate affect, normal mood Skin exam: PRESENT: dry, intact, warm Results Laboratory Results: 01/11/19 07:00 01/11/19 07:00 01/10/19 01/10/19 01/10/19 19:30 19:30 20:55 WBC RBC Hgb Hct MCV MCH MCHC RDW Plt Count Seg Neutrophils % Lymphocytes % Monocytes % Eosinophils % Basophils % Absolute Neutrophils Absolute Lymphocytes Absolute Monocytes Absolute Eosinophils Absolute Basophils Sodium Potassium Chloride Carbon Dioxide Anion Gap BUN Creatinine Est GFR ( Amer) Est GFR (Non-Af Amer) Glucose Calcium Phosphorus 2.8 Magnesium 2.4 H Total Bilirubin AST ALT Alkaline Phosphatase Total Protein Albumin Triglycerides Cholesterol LDL Cholesterol Direct VLDL Cholesterol HDL Cholesterol Amylase 64 Lipase 71.2 TSH 1.04 Free T4 1.00 PTH Intact 164.3 H Urine Color Urine Appearance Urine pH Ur Specific [place] Urine Protein Urine Glucose (UA) Urine Ketones Urine Blood Urine Nitrite Ur Leukocyte Esterase Urine WBC (Auto) Urine RBC (Auto) 01/10/19 01/11/19 01/11/19 22:35 07:00 07:00 WBC 6.0 RBC 4.92 Hgb 10.3 L D Hct 33.0 L MCV 67 L MCH 21.0 L MCHC 31.4 L RDW 15.4 H Plt Count 241 Seg Neutrophils % 47.2 Lymphocytes % 40.3 Monocytes % 7.1 Eosinophils % 4.6 Basophils % 0.8 Absolute Neutrophils 2.8 Absolute Lymphocytes 2.4 Absolute Monocytes 0.4 Absolute Eosinophils 0.3 Absolute Basophils 0.0 Sodium 143.0 Potassium 4.5 Chloride 108 H Carbon Dioxide 26 Anion Gap 9 BUN 10 Creatinine 0.80 Est GFR ( Amer) > 60 Est GFR (Non-Af Amer) > 60 Glucose 134 H Calcium 10.0 Phosphorus Magnesium Total Bilirubin 0.3 AST 26 ALT 17 Alkaline Phosphatase 67 Total Protein 6.7 Albumin 3.6 Triglycerides 146 Cholesterol 172.82 LDL Cholesterol Direct 118 H VLDL Cholesterol 29.0 HDL Cholesterol 24 L Amylase Lipase TSH Free T4 PTH Intact Urine Color YELLOW Urine Appearance SLIGHTLY-CLOUDY Urine pH 7.0 Ur Specific [place] 1.013 Urine Protein NEGATIVE Urine Glucose (UA) NEGATIVE Urine Ketones NEGATIVE Urine Blood SMALL H Urine Nitrite NEGATIVE Ur Leukocyte Esterase LARGE H Urine WBC (Auto) 27 Urine RBC (Auto) 12 01/10/19 01/10/19 01/10/19 14:41 14:41 19:30 Creatine Kinase 470 H CK-MB (CK-2) 1.71 Troponin I < 0.012 < 0.012 NT-Pro-B Natriuret Pep 01/10/19 01/11/19 01/11/19 19:30 01:52 01:52 Creatine Kinase 387 H CK-MB (CK-2) 1.41 Troponin I < 0.012 NT-Pro-B Natriuret Pep 95 01/11/19 01/11/19 01/11/19 07:00 07:00 13:20 Creatine Kinase 312 H 290 H CK-MB (CK-2) 1.04 Troponin I < 0.012 NT-Pro-B Natriuret Pep 01/11/19 13:20 Creatine Kinase CK-MB (CK-2) 0.90 Troponin I < 0.012 NT-Pro-B Natriuret Pep Impressions: Parathyroid Scan Nuclear Medicine 01/10/19 00:00 IMPRESSION: Hyperfunctioning small nodule over the lower pole left lobe thyroid, could represent a thyroid adenoma or parathyroid adenoma Chest X-Ray 01/10/19 14:05 IMPRESSION: NO ACUTE RADIOGRAPHIC FINDING IN THE CHEST. Qualifiers - * PATIENT BEING DISCHARGED WITH ANY OF THE FOLLOWING DIAGNOSIS: No
[2019-01-11] MEDS: INSULIN REG, HUMAN 100 UNIT/ML 3 ML VIAL (PYX) SUBCUT SCH (21:58)
[2019-01-11] MEDS: METFORMIN HCL 500 MG TABLET PO SCH (22:00)
[2019-01-12 06:24] LABS: ABSOLUTE EOSINOPHILS # (AUTO) 0.3 10^3/uL (0.0-0.6); ABSOLUTE LYMPHOCYTES (AUTO) 2.9 10^3/uL (0.5-4.7); ABSOLUTE MONOCYTES (AUTO) 0.6 10^3/uL (0.1-1.4); ABSOLUTE NEUT (AUTO) 2.6 10^3/uL (1.7-8.2); BASOPHILS % (AUTO) 0.7 % (0-2); EOSINOPHILS % (AUTO) 4.5 % (0-6); HEMATOCRIT 33.4 % (36.0-47.0); HEMOGLOBIN 10.5 g/dL (12.0-15.5); LYMPHOCYTES % (AUTO) 45.8 % (13-45); MEAN CORPUSCULAR HEMOGLOBIN 20.9 pg (27.0-33.4); MEAN CORPUSCULAR HGB CONC 31.3 g/dL (32.0-36.0); MEAN CORPUSCULAR VOLUME 67 fl (80-97); MONOCYTES % (AUTO) 9.1 % (3-13); PLATELET COUNT 244 10^3/uL (150-450); RED BLOOD COUNT 5.01 10^6/uL (3.72-5.28); RED CELL DISTRIBUTION WIDTH 15.8 % (11.5-14.0); SEGMENTED NEUTROPHILS % (AUTO) 39.9 % (42-78); TOTAL CELLS COUNTED % (AUTO) 100 %; WHITE BLOOD COUNT 6.4 10^3/uL (4.0-10.5)
[2019-01-12 06:54] LABS: ALANINE AMINOTRANSFERASE 28 U/L (9-52); ALBUMIN 3.5 g/dL (3.5-5.0); ALKALINE PHOSPHATASE 76 U/L (38-126); ANION GAP 7 (5-19); ASPARTATE AMINO TRANSFERASE 25 U/L (14-36); BILIRUBIN,DIRECT 0.1 mg/dL (0.0-0.4); BILIRUBIN,TOTAL 0.2 mg/dL (0.2-1.3); BLOOD UREA NITROGEN 12 mg/dL (7-20); CALCIUM 9.9 mg/dL (8.4-10.2); CARBON DIOXIDE 25 mmol/L (22-30); CHLORIDE 106 mmol/L (98-107); GLUCOSE 105 mg/dL (75-110); POTASSIUM 4.1 mmol/L (3.6-5.0); SODIUM 138.2 mmol/L (137-145); TOTAL PROTEIN 6.9 g/dL (6.3-8.2)
[2019-01-12] MEDS: INSULIN REG, HUMAN 100 UNIT/ML 3 ML VIAL (PYX) SUBCUT SCH (09:55)
[2019-01-12] MEDS: ENOXAPARIN SODIUM INJ 40 MG/0.4 ML DISP.SYRIN SUBCUT SCH (10:09)
[2019-01-12] MEDS: HYDROCHLOROTHIAZIDE 25 MG TABLET PO SCH (10:10)
[2019-01-12] MEDS: MULTIVITAMIN TABLET PO SCH (10:10)
[2019-01-12] MEDS: METFORMIN HCL 500 MG TABLET PO SCH (10:10)
[2019-01-12] MEDS: LISINOPRIL 10 MG TABLET PO SCH (10:11)
[2019-01-12 12:16] VITALS: BP 170/78
--- NOTE | 2019-01-12 12:51 | XCELERA REPORT ---
[address] [address] Transthoracic Echocardiogram Report Name: PADMINI MCARTHUR Age: 58 yrs Gender: Female : 1960 Patient Status: Inpatient Patient Location: [address] [place], [place] [address] Study Date: 01/11/2019 08:43 PM Height: 65 in Weight: 232 lb BSA: 2.1 m2 Procedure: A two-dimensional transthoracic echocardiogram with color flow and Doppler was performed. The study was technically difficult with many images being suboptimal in quality. Reason For Study: syncope History: SYNCOPE. Ordering Physician: CANDIDA ROCK Performed By: Angie Mercedes Interpretation Summary The left ventricle is normal in size. There is normal left ventricular wall thickness. LV EF is 65% The left ventricular ejection fraction is within normal limits. Doppler measurements suggest impaired left ventricular relaxation, which is associated with grade I/IV or mild diastolic dysfunction The left ventricular wall motion is normal. The right ventricle is grossly normal size. The right atrium is normal. The left atrial size is normal. There is no evidence of mitral valve prolapse. There is no mitral valve stenosis. There is no mitral regurgitation noted. There is no aortic valve stenosis There is no LVOT obstruction. No aortic regurgitation is present. There is no tricuspid stenosis. There is a trace amount of tricuspid regurgitation There is mild pulmonary hypertension by echo RVSP is 35 mm of Hg , with RA mean of 10. There is no pulmonic valvular regurgitation. There is no pericardial effusion. MMode/2D Measurements & Calculations RVDd: 2.1 cm LVIDd: 4.5 cm FS: 35.0 % Ao root diam: 2.4 cm IVSd: 0.99 cm LVIDs: 2.9 cm EDV(Teich): 92.6 ml Ao root area: 4.5 cm2 LVPWd: 0.93 cm ESV(Teich): 32.9 ml LA dimension: 2.8 cm EF(Teich): 64.4 % Doppler Measurements & Calculations MV E max ronal: MV P1/2t max ronal: Ao V2 max: LV V1 max P.4 cm/sec 122.2 cm/sec 186.2 cm/sec 4.8 mmHg MV A max ronal: MV P1/2t: 93.6 msec Ao max PG: LV V1 max: 91.8 cm/sec MVA(P1/2t): 2.4 cm2 13.9 mmHg 110.1 cm/sec MV E/A: 0.93 MV dec slope: 382.5 cm/sec2 MV dec time: 0.23 sec PA V2 max: TR max ronal: MV P1/2t-pr_phl: 108.6 cm/sec 251.1 cm/sec 93.6 msec PA max PG: TR max P.2 mmHg 4.7 mmHg Left Ventricle The left ventricle is normal in size. There is normal left ventricular wall thickness. LV EF is 65%. The left ventricular ejection fraction is within normal limits. Doppler measurements suggest impaired left ventricular relaxation, which is associated with grade I/IV or mild diastolic dysfunction. The left ventricular wall motion is normal. There is no thrombus. Right Ventricle The right ventricle is grossly normal size. The right ventricle is not well visualized secondary to technical limitations. Atria The right atrium is normal. The left atrial size is normal. Mitral Valve There is no evidence of mitral valve prolapse. There is no vegetation seen on the mitral valve. There is no mitral valve stenosis. There is no mitral regurgitation noted. Aortic Valve There is no aortic valvular vegetation. There is no aortic valve stenosis. There is no LVOT obstruction. No aortic regurgitation is present. Tricuspid Valve There is no tricuspid stenosis. There is a trace amount of tricuspid regurgitation. There is mild pulmonary hypertension by echo. RVSP is 35 mm of Hg , with RA mean of 10. Pulmonic Valve There is no pulmonic valvular stenosis. There is no pulmonic valvular regurgitation. Great Vessels The aortic root is not well visualized. The inferior vena cava was not well visualized. Effusions There is no pericardial effusion. : CANDIDA ROCK > Kelly Penny
== END 2019-01-12 12:46 | disposition home or self-care (01) ==
LOC: ER 13:24 → EH 19:16 → INTOOBSV 19:16 → 3W 22:52
PROVIDERS: ADMIT Internal Medicine; ATTEND Internal Medicine
DX: G93.41 Metabolic encephalopathy (principal); E83.52 Hypercalcemia; E21.0 Primary hyperparathyroidism; E11.9 Type 2 diabetes mellitus without complications; R55 Syncope and collapse; D35.1 Benign neoplasm of parathyroid gland; I10 Essential (primary) hypertension; K59.00 Constipation, unspecified; R07.9 Chest pain, unspecified; Z79.899 Other long term (current) drug therapy; Z86.69 Personal history of other diseases of the nervous system and sense organs; Z82.49 Family history of ischemic heart disease and other diseases of the circulatory system; Z80.9 Family history of malignant neoplasm, unspecified; Z98.890 Other specified postprocedural states; Z83.3 Family history of diabetes mellitus; Z82.3 Family history of stroke; Z83.49 Family history of other endocrine, nutritional and metabolic diseases
CPT/HCPCS: 93005; 99285; 36415 ×3; 84439; 82553 ×2; 82962 ×2; 82150; 82550 ×2; 83690; 83735; 84100; 84443; 85025 ×3; 85610; 85730; 80076 ×2; 80048 ×2; 80053; 81001; 84484 ×2; 80307; 83036; 80061; 83970; 83880; 93306; 71045; 78070; 93010; G0378 ×4; A9500; S0119; J1650 ×2; J7030 ×2; Q9969

== ENCOUNTER → 2019-03-22 | Outpatient (CLI) | payer BC ==
[~2019-03-22] MED LIST: ALBUTEROL SULFATE 0.083% NEB 2.5 MG/3 ML AMPUL NEB ONE
--- NOTE | 2019-03-22 12:26 | WOMENS IMAGING REPORT ---
EXAM DESCRIPTION: 3D SCREENING MAMMO BILAT COMPLETED DATE/TIME: 03/22/2019 7:45 am REASON FOR STUDY: Z12.31 ROUTINE 3D BILATERAL SCREENING Z12.31 ENCNTR SCREEN MAMMOGRAM FOR MALIGNAN T NEOPLASM OF FREYA COMPARISON: 2012 EXAM PARAMETERS: Views: Standard craniocaudal and mediolateral oblique views of each breast recorded using digital acquisition and breast tomosynthesis. Read with the assistance of CAD. .[facility] - [employer] Dean Version 9.2 LIMITATIONS: None. FINDINGS: No suspicious masses, suspicious calcifications or architectural distortion. No areas of c oncern. IMPRESSION: Assessment: Negative MAMMOGRAM. BIRADS 1. BREAST DENSITY: b. There are scattered areas of fibroglandular density. BIRAD: 1 NEGATIVE RECOMMENDATION: ROUTINE SCREENING COMMENT: The patient has been notified of the results by letter per MQSA requirements. Additional no tification policies are in place for contacting patient with suspicious or incomplete findings. Quality ID #[id number]: The [employer] recommends an annual screening mammogram for women aged 40 years or over. This facility utilizes a reminder system to ensure that all patients receive reminder letters, and/or direct phone calls for appointments. This includes reminders for routine scr eening mammograms, diagnostic mammograms, or other Breast Imaging Interventions when appropriate. Th is patient will be placed in the appropriate reminder system. TECHNICAL DOCUMENTATION: FINDING NUMBER: (1) ASSESSMENT: (1) JOB ID: [id number] [employer]- All Rights Reserved Reading location - IP/workstation name: [email or web address]
== END ==
LOC: WI 07:25
PROVIDERS: ATTEND Internal Medicine
DX: Z12.31 Encounter for screening mammogram for malignant neoplasm of breast (principal)
CPT/HCPCS: 77063; 77067

== ENCOUNTER 2019-05-02 16:40 | Inpatient (IN) | payer BC ==
[2019-05-02] MEDS: NORMAL SALINE 1000 ML 1,000 ML IV PRN (17:45)
[2019-05-02] MEDS ORDERED: HYDROMORPHONE HCL INJ/PF 2 MG/ML AMPULE IV PRN (17:57)
[2019-05-02] MEDS: TAMSULOSIN HCL 0.4 MG CAP.SR.24H PO SCH (18:40)
[2019-05-02 18:59] LABS: ABSOLUTE BASOPHILS # (AUTO) 0.1 10^3/uL (0.0-0.2); ABSOLUTE EOSINOPHILS # (AUTO) 0.3 10^3/uL (0.0-0.6); ABSOLUTE LYMPHOCYTES (AUTO) 1.9 10^3/uL (0.5-4.7); ABSOLUTE MONOCYTES (AUTO) 0.8 10^3/uL (0.1-1.4); ABSOLUTE NEUT (AUTO) 6.6 10^3/uL (1.7-8.2); BASOPHILS % (AUTO) 0.7 % (0-2); EOSINOPHILS % (AUTO) 2.6 % (0-6); HEMATOCRIT 30.9 % (36.0-47.0); HEMOGLOBIN 9.8 g/dL (12.0-15.5); LYMPHOCYTES % (AUTO) 19.8 % (13-45); MEAN CORPUSCULAR HEMOGLOBIN 20.9 pg (27.0-33.4); MEAN CORPUSCULAR HGB CONC 31.8 g/dL (32.0-36.0); MEAN CORPUSCULAR VOLUME 66 fl (80-97); MONOCYTES % (AUTO) 8.3 % (3-13); PLATELET COUNT 280 10^3/uL (150-450); RED BLOOD COUNT 4.69 10^6/uL (3.72-5.28); RED CELL DISTRIBUTION WIDTH 15.2 % (11.5-14.0); SEGMENTED NEUTROPHILS % (AUTO) 68.6 % (42-78); TOTAL CELLS COUNTED % (AUTO) 100 %; WHITE BLOOD COUNT 9.6 10^3/uL (4.0-10.5)
[2019-05-02] MEDS ORDERED: ERTAPENEM SODIUM 1 GM in NORMAL SALINE 50 ML IV SCH (19:00)
[2019-05-02 19:03] LABS: APPEARANCE,URINE CLEAR; BILIRUBIN,URINE NEGATIVE (NEGATIVE); COLOR,URINE YELLOW; GLUCOSE, URINE NEGATIVE (NEGATIVE); KETONES,URINE NEGATIVE (NEGATIVE); LEUKOCYTE ESTERASE,URINE LARGE (NEGATIVE); NITRITE,URINE NEGATIVE (NEGATIVE); PROTEIN,URINE NEGATIVE (NEGATIVE); URINE SPECIFIC GRAVITY 1.011; UROBILINOGEN,URINE NEGATIVE mg/dL (<2.0)
[2019-05-02 20:08] LABS: ALANINE AMINOTRANSFERASE 22 U/L (9-52); ALBUMIN 3.6 g/dL (3.5-5.0); ALKALINE PHOSPHATASE 72 U/L (38-126); ASPARTATE AMINO TRANSFERASE 19 U/L (14-36); BILIRUBIN,DIRECT 0.2 mg/dL (0.0-0.4); BILIRUBIN,TOTAL 0.3 mg/dL (0.2-1.3)
[2019-05-02 20:10] LABS: ANION GAP 9 (5-19); BLOOD UREA NITROGEN 25 mg/dL (7-20); CALCIUM 9.8 mg/dL (8.4-10.2); CARBON DIOXIDE 26 mmol/L (22-30); CHLORIDE 102 mmol/L (98-107); GLUCOSE 132 mg/dL (75-110); SODIUM 136.5 mmol/L (137-145)
--- NOTE | 2019-05-02 20:59 | PDOC H&P ---
History of Present Illness Admission Date/PCP: 05/02/19 16:40 CANDIDA ROCK MD History of Present Illness: PADMINI MCARTHUR is a 58 year old female, She came to the office today for era luation of right flank pain with radiation to the right iliac fossa, on examination in the office there was tenderness in the right iliac fossa, a kidney stone was suspected a stat CT scan of the abdomen and pelvis with no contrast was obtained, it demonstrated a 1.7 x 1 cm stone in the right upper third of the ureter causing marked right hydronephrosis and hydroureter the stone is at the level of the right L3 transverse process also found was right- sided perinephric stranding there was associated acute kidney injury she was admitted directly from the office into the hospital for the management of right pyelonephritis and kidney stone. Past Medical History Cardiac Medical History: Reports: Hyperlipidema, Hypertension Pulmonary Medical History: Reports: Asthma Endocrine Medical History: Reports: Diabetes Mellitus Type 2 - "borderline" Musculoskeltal Medical History: Reports: Arthritis Psychiatric Medical History: Reports: Depression Hematology: Reports: Anemia Past Surgical History Past Surgical History: Reports: Tubal Ligation Social History Smoking Status: Never Smoker Frequency of Alcohol Use: None Hx Recreational Drug Use: No Drugs: None Hx Prescription Drug Abuse: No Family History Family History: Reviewed & Not Pertinent Parental Family History Reviewed: Yes Children Family History Reviewed: Yes Sibling(s) Family History Reviewed.: Yes Medication/Allergy Home Medications: Lisinopril/Hydrochlorothiazide [Zestoretic 20-25 mg Tablet] 1 tab PO DAILY 01/10/19 Acetaminophen [Tylenol 325 mg Tablet] 650 mg PO Q6HP PRN tablet 01/11/19 Dextrose 50%-Water [Dextrose Inj 50% Syringe (25 gm/50 ml)] 12.5 gm IV PRN PRN #0 disp.syrin 01/11/19 Dextrose [Glutose 40% Gel 15 gm Tube] 15 gm PO PRN PRN #0 tube 01/11/19 Metformin HCl [Glucophage 500 mg Tablet] 500 mg PO BIDACBS #90 tablet 01/11/19 Allergies/Adverse Reactions: Penicillins Allergy (Verified 08/22/17 12:00) Review of Systems Constitutional: ABSENT: chills, fever(s), headache(s), weight gain, weight loss Eyes: ABSENT: visual disturbances Ears: ABSENT: hearing changes Cardiovascular: ABSENT: chest pain, dyspnea on exertion, edema, orthropnea, palpitations Respiratory: ABSENT: cough, hemoptysis Gastrointestinal: PRESENT: abdominal pain. ABSENT: constipation, diarrhea, hematemesis, hematochezia, nausea, vomiting Genitourinary: ABSENT: dysuria, hematuria Musculoskeletal: ABSENT: joint swelling Integumentary: ABSENT: rash, wounds Neurological: ABSENT: abnormal gait, abnormal speech, confusion, dizziness, f ocal weakness, syncope Psychiatric: ABSENT: anxiety, depression, homidical ideation, suicidal ideation Endocrine: ABSENT: cold intolerance, heat intolerance, menstrual abnormalities, polydipsia, polyuria Hematologic/Lymphatic: ABSENT: easy bleeding, easy bruising, lymphadenopathy Physical Exam Vital Signs: Temp Pulse Resp BP Pulse Ox 98.2 F 79 16 153/65 H 97 05/02/19 17:25 05/02/19 17:25 05/02/19 17:25 05/02/19 17:25 05/02/19 17:25 Intake & Output 05/01/19 05/02/19 05/03/19 06:59 06:59 06:59 Intake Total 340 Output Total 350 Balance -10 Weight 100.6 kg General appearance: PRESENT: no acute distress, well-developed, well-nourished Head exam: PRESENT: atraumatic, normocephalic Eye exam: PRESENT: conjunctiva pink, EOMI, PERRLA Ear exam: PRESENT: normal external ear exam Mouth exam: PRESENT: moist, tongue midline Neck exam: PRESENT: full ROM Respiratory exam: PRESENT: clear to auscultation lorena Cardiovascular exam: PRESENT: RRR, +S1, +S2 Pulses: PRESENT: normal dorsalis pedis pul, +2 pedal pulses bilateral Vascular exam: PRESENT: normal capillary refill GI/Abdominal exam: PRESENT: normal bowel sounds, soft, tenderness - Right lower quadrant abdomen Rectal exam: PRESENT: deferred Neurological exam: PRESENT: alert, awake, oriented to person, oriented to place, oriented to time, oriented to situation, CN II-XII grossly intact Psychiatric exam: PRESENT: appropriate affect, normal mood Skin exam: PRESENT: dry, intact, warm. ABSENT: cyanosis, rash Results Laboratory Results: 05/02/19 17:45 05/02/19 19:25 05/02/19 05/02/19 05/02/19 17:43 17:45 19:25 WBC 9.6 RBC 4.69 Hgb 9.8 L Hct 30.9 L MCV 66 L MCH 20.9 L MCHC 31.8 L RDW 15.2 H Plt Count 280 Seg Neutrophils % 68.6 Lymphocytes % 19.8 Monocytes % 8.3 Eosinophils % 2.6 Basophils % 0.7 Absolute Neutrophils 6.6 Absolute Lymphocytes 1.9 Absolute Monocytes 0.8 Absolute Eosinophils 0.3 Absolute Basophils 0.1 Sodium 136.5 L Potassium 4.0 Chloride 102 Carbon Dioxide 26 Anion Gap 9 BUN 25 H Creatinine 1.46 H Est GFR ( Amer) 44 L Est GFR (Non-Af Amer) 37 L Glucose 132 H Calcium 9.8 Total Bilirubin AST ALT Alkaline Phosphatase Total Protein Albumin Urine Color YELLOW Urine Appearance CLEAR Urine pH 6.0 Ur Specific [place] 1.011 Urine Protein NEGATIVE Urine Glucose (UA) NEGATIVE Urine Ketones NEGATIVE Urine Blood SMALL H Urine Nitrite NEGATIVE Ur Leukocyte Esterase LARGE H Urine WBC (Auto) 40 Urine RBC (Auto) 2 05/02/19 19:25 WBC RBC Hgb Hct MCV MCH MCHC RDW Plt Count Seg Neutrophils % Lymphocytes % Monocytes % Eosinophils % Basophils % Absolute Neutrophils Absolute Lymphocytes Absolute Monocytes Absolute Eosinophils Absolute Basophils Sodium Potassium Chloride Carbon Dioxide Anion Gap BUN Creatinine Est GFR ( Amer) Est GFR (Non-Af Amer) Glucose Calcium Total Bilirubin 0.3 AST 19 ALT 22 Alkaline Phosphatase 72 Total Protein 7.0 Albumin 3.6 Urine Color Urine Appearance Urine pH Ur Specific [place] Urine Protein Urine Glucose (UA) Urine Ketones Urine Blood Urine Nitrite Ur Leukocyte Esterase Urine WBC (Auto) Urine RBC (Auto) Assessment & Plan - Diagnosis (1) Calculus of right ureter Is this a current diagnosis for this admission?: Yes Plan: Start IV fluid, start Flomax, most kidney stone less than 10 mm will pass, this kidney stone measures 1.7 x 1 cm, if no improvement she may need a stent or lithotripsy (2) Hydronephrosis, right Is this a current diagnosis for this admission?: Yes (3) Acute kidney injury Is this a current diagnosis for this admission?: Yes (4) T2DM (type 2 diabetes mellitus) Qualifiers: Diabetes mellitus fdc insulin use: without fdc use Diabetes mellitus complication status: without complication Qualified Code(s): E11.9 - Type 2 diabetes mellitus without complications Is this a current diagnosis for this admission?: Yes (5) Acute pyelonephritis Is this a current diagnosis for this admission?: Yes Plan: Start IV antibiotic
[2019-05-02] MEDS ORDERED: DEXTROSE 40% GEL 15 GM TUBE X 2 PO PRN (22:00)
[2019-05-02] MEDS ORDERED: GLUCAGON,HUMAN RECOMB 1 MG INJ IM PRN (22:00)
[2019-05-02] MEDS ORDERED: DEXTROSE 50%-WATER SYRINGE 25 GM/50 ML DOSE IV PRN (22:00)
[2019-05-02] MEDS ORDERED: DEXTROSE 40% GEL 15 GM TUBE PO PRN (22:00)
[2019-05-02] MEDS ORDERED: DEXTROSE 50%-WATER SYRINGE 12.5 GM/25 ML DOSE IV PRN (22:00)
[2019-05-02] MEDS: INSULIN LISPRO 100 UNIT/ML 3 ML VIAL SUBCUT SCH (23:01)
[2019-05-02] MEDS: MEROPENEM 1 GM in NORMAL SALINE 50 ML IV SCH (23:15)
[2019-05-02] MEDS: ONDANSETRON HCL INJ/PF 4 MG/2 ML SDV IV PRN (23:16)
[2019-05-03] MEDS: NORMAL SALINE 1000 ML 1,000 ML IV PRN ×3 (03:11→23:12)
[2019-05-03] MEDS: TAMSULOSIN HCL 0.4 MG CAP.SR.24H PO SCH ×3 (05:20→17:23)
[2019-05-03] MEDS: MEROPENEM 1 GM in NORMAL SALINE 50 ML IV SCH ×3 (05:20→21:48)
[2019-05-03] MEDS: ONDANSETRON HCL INJ/PF 4 MG/2 ML SDV IV PRN ×2 (05:22→09:04)
[2019-05-03] MEDS: INSULIN LISPRO 100 UNIT/ML 3 ML VIAL SUBCUT SCH ×4 (08:01→21:46)
--- NOTE | 2019-05-03 09:11 | RADIOLOGY REPORT (SQ) ---
EXAM DESCRIPTION: KUB/ABDOMEN (SINGLE VIEW) COMPLETED DATE/TIME: 05/03/2019 9:01 am REASON FOR STUDY: kidney stone COMPARISON: CT dated 05/02/2019. NUMBER OF VIEWS: One view. TECHNIQUE: AP supine digital radiograph of the abdomen. LIMITATIONS: None. FINDINGS: CALCIFICATIONS: RIGHT KIDNEY: Faint calculus in the lower pole. RIGHT URETER: 1.0 x 1.7 cm calculus in the proximal ureter at the level of L3-L4. LEFT KIDNEY: Small calculi in the lower pole. LEFT URETER: No calcifications in the expected location of the ureter. BLADDER: No suspicious calcifications in the pelvis. BOWEL GAS PATTERN AND SOFT TISSUES: Normal bowel gas pattern. No masses or organomegaly. BONES: No acute fracture. No worrisome bone lesions. OTHER: None. IMPRESSION: LARGE CALCULUS IN THE PROXIMAL RIGHT URETER. SMALL CALCULI IN BOTH KIDNEYS. NO SIGNIFI CANT CHANGE FROM THE PREVIOUS CT. TECHNICAL DOCUMENTATION: JOB ID: [id number] [employer]- All Rights Reserved Reading location - IP/workstation name: [email or web address]
[2019-05-03 10:27] LABS: ABSOLUTE EOSINOPHILS # (AUTO) 0.1 10^3/uL (0.0-0.6); ABSOLUTE LYMPHOCYTES (AUTO) 1.2 10^3/uL (0.5-4.7); ABSOLUTE MONOCYTES (AUTO) 0.7 10^3/uL (0.1-1.4); BASOPHILS % (AUTO) 0.6 % (0-2); EOSINOPHILS % (AUTO) 1.2 % (0-6); HEMATOCRIT 30.9 % (36.0-47.0); HEMOGLOBIN 9.6 g/dL (12.0-15.5); LYMPHOCYTES % (AUTO) 15.2 % (13-45); MEAN CORPUSCULAR HEMOGLOBIN 20.5 pg (27.0-33.4); MEAN CORPUSCULAR HGB CONC 30.9 g/dL (32.0-36.0); MEAN CORPUSCULAR VOLUME 66 fl (80-97); MONOCYTES % (AUTO) 8.6 % (3-13); PLATELET COUNT 271 10^3/uL (150-450); RED BLOOD COUNT 4.66 10^6/uL (3.72-5.28); RED CELL DISTRIBUTION WIDTH 15.8 % (11.5-14.0); SEGMENTED NEUTROPHILS % (AUTO) 74.4 % (42-78); TOTAL CELLS COUNTED % (AUTO) 100 %; WHITE BLOOD COUNT 8.1 10^3/uL (4.0-10.5)
[2019-05-03 10:52] LABS: ALANINE AMINOTRANSFERASE 22 U/L (9-52); ALBUMIN 3.5 g/dL (3.5-5.0); ALKALINE PHOSPHATASE 56 U/L (38-126); ASPARTATE AMINO TRANSFERASE 17 U/L (14-36); BILIRUBIN,DIRECT 0.2 mg/dL (0.0-0.4); BILIRUBIN,TOTAL 0.4 mg/dL (0.2-1.3); BLOOD UREA NITROGEN 20 mg/dL (7-20); CALCIUM 9.5 mg/dL (8.4-10.2); GLUCOSE 96 mg/dL (75-110); POTASSIUM 4.7 mmol/L (3.6-5.0)
[2019-05-03 10:57] LABS: ANION GAP 6 (5-19); CARBON DIOXIDE 29 mmol/L (22-30); CHLORIDE 106 mmol/L (98-107); SODIUM 140.5 mmol/L (137-145)
--- NOTE | 2019-05-03 20:54 | PDOC PROGRESS REPORT ---
Subjective Progress Note for:: 05/03/19 Subjective:: Patient was admitted yesterday for the management of obstructive right ureteric stone associated with hydronephrosis, acute kidney injury, the KUB from today demonstrated that the kidney stone was not descending, the azotemia is improved, she may ultimately need lithotripsy or extraction of the kidney stone Reason For Visit: ACUTE KIDNEY INJURY Physical Exam Vital Signs: Temp Pulse Resp BP Pulse Ox 97.9 F 54 L 20 144/63 H 98 05/03/19 19:26 05/03/19 19:26 05/03/19 19:26 05/03/19 19:26 05/03/19 19:26 Intake & Output 05/02/19 05/03/19 05/04/19 06:59 06:59 06:59 Intake Total 1440 1731 Output Total 700 1400 Balance 740 331 Weight 100.6 kg General appearance: PRESENT: no acute distress Eye exam: PRESENT: PERRLA Respiratory exam: PRESENT: clear to auscultation lorena Cardiovascular exam: PRESENT: +S1, +S2 GI/Abdominal exam: PRESENT: soft Results Laboratory Results: 05/03/19 10:12 05/03/19 10:12 05/03/19 05/03/19 10:12 10:12 WBC 8.1 RBC 4.66 Hgb 9.6 L Hct 30.9 L MCV 66 L MCH 20.5 L MCHC 30.9 L RDW 15.8 H Plt Count 271 Seg Neutrophils % 74.4 Lymphocytes % 15.2 Monocytes % 8.6 Eosinophils % 1.2 Basophils % 0.6 Absolute Neutrophils 6.0 Absolute Lymphocytes 1.2 Absolute Monocytes 0.7 Absolute Eosinophils 0.1 Absolute Basophils 0.0 Sodium 140.5 Potassium 4.7 Chloride 106 Carbon Dioxide 29 Anion Gap 6 BUN 20 Creatinine 1.00 Est GFR ( Amer) > 60 Est GFR (Non-Af Amer) 57 L Glucose 96 Calcium 9.5 Total Bilirubin 0.4 AST 17 ALT 22 Alkaline Phosphatase 56 Total Protein 7.0 Albumin 3.5 Impressions: KUB X-Ray 05/03/19 00:00 IMPRESSION: LARGE CALCULUS IN THE PROXIMAL RIGHT URETER. SMALL CALCULI IN BOTH KIDNEYS. NO SIGNIFICANT CHANGE FROM THE PREVIOUS CT. Assessment & Plan - Diagnosis (1) Calculus of right ureter Is this a current diagnosis for this admission?: Yes Plan: Continue Flomax, IV hydration (2) Hydronephrosis, right Is this a current diagnosis for this admission?: Yes (3) Acute kidney injury Is this a current diagnosis for this admission?: Yes Plan: Improved (4) T2DM (type 2 diabetes mellitus) Qualifiers: Diabetes mellitus terminal worker insulin use: without shelter use Diabetes mellitus complication status: without complication Qualified Code(s): E11.9 - Type 2 diabetes mellitus without complications Is this a current diagnosis for this admission?: Yes (5) Acute pyelonephritis Is this a current diagnosis for this admission?: Yes Plan: Continue IV antibiotic
[2019-05-04] MEDS: MEROPENEM 1 GM in NORMAL SALINE 50 ML IV SCH ×2 (05:28→13:47)
[2019-05-04] MEDS: TAMSULOSIN HCL 0.4 MG CAP.SR.24H PO SCH (05:28)
[2019-05-04 05:56] LABS: ABSOLUTE EOSINOPHILS # (AUTO) 0.3 10^3/uL (0.0-0.6); ABSOLUTE LYMPHOCYTES (AUTO) 1.8 10^3/uL (0.5-4.7); ABSOLUTE MONOCYTES (AUTO) 0.6 10^3/uL (0.1-1.4); ABSOLUTE NEUT (AUTO) 3.7 10^3/uL (1.7-8.2); BASOPHILS % (AUTO) 0.7 % (0-2); EOSINOPHILS % (AUTO) 4.6 % (0-6); HEMATOCRIT 30.6 % (36.0-47.0); HEMOGLOBIN 9.6 g/dL (12.0-15.5); LYMPHOCYTES % (AUTO) 28.1 % (13-45); MEAN CORPUSCULAR HEMOGLOBIN 20.7 pg (27.0-33.4); MEAN CORPUSCULAR HGB CONC 31.3 g/dL (32.0-36.0); MEAN CORPUSCULAR VOLUME 66 fl (80-97); MONOCYTES % (AUTO) 8.8 % (3-13); PLATELET COUNT 255 10^3/uL (150-450); RED BLOOD COUNT 4.62 10^6/uL (3.72-5.28); RED CELL DISTRIBUTION WIDTH 15.7 % (11.5-14.0); SEGMENTED NEUTROPHILS % (AUTO) 57.8 % (42-78); TOTAL CELLS COUNTED % (AUTO) 100 %; WHITE BLOOD COUNT 6.4 10^3/uL (4.0-10.5)
[2019-05-04 06:08] LABS: ALANINE AMINOTRANSFERASE 19 U/L (9-52); ALBUMIN 3.2 g/dL (3.5-5.0); ALKALINE PHOSPHATASE 62 U/L (38-126); ANION GAP 6 (5-19); ASPARTATE AMINO TRANSFERASE 16 U/L (14-36); BILIRUBIN,DIRECT 0.2 mg/dL (0.0-0.4); BILIRUBIN,TOTAL 0.3 mg/dL (0.2-1.3); BLOOD UREA NITROGEN 16 mg/dL (7-20); CALCIUM 9.4 mg/dL (8.4-10.2); CARBON DIOXIDE 27 mmol/L (22-30); CHLORIDE 109 mmol/L (98-107); GLUCOSE 129 mg/dL (75-110); POTASSIUM 4.5 mmol/L (3.6-5.0); SODIUM 141.6 mmol/L (137-145); TOTAL PROTEIN 6.5 g/dL (6.3-8.2)
[2019-05-04] MEDS: INSULIN LISPRO 100 UNIT/ML 3 ML VIAL SUBCUT SCH ×2 (08:03→12:14)
--- NOTE | 2019-05-04 08:32 | RADIOLOGY REPORT (SQ) ---
EXAM DESCRIPTION: KUB/ABDOMEN (SINGLE VIEW) COMPLETED DATE/TIME: 05/04/2019 7:39 am REASON FOR STUDY: kidney stone COMPARISON: 05/03/2019. NUMBER OF VIEWS: One view. TECHNIQUE: AP supine digital radiograph of the abdomen. LIMITATIONS: None. FINDINGS: CALCIFICATIONS: RIGHT KIDNEY: None. RIGHT URETER: Large calculus located at the level of L4, unchanged. LEFT KIDNEY: None. LEFT URETER: No calcifications in the expected location of the ureter. BLADDER: No suspicious calcifications in the pelvis. BOWEL GAS PATTERN AND SOFT TISSUES: Normal bowel gas pattern. No masses or organomegaly. BONES: No acute fracture. No worrisome bone lesions. OTHER: None. IMPRESSION: NO SIGNIFICANT CHANGE IN THE LARGE RIGHT URETERAL CALCULUS. PREVIOUSLY SEEN SMALL RENAL CALCULI ARE DIFFICULT TO VISUALIZE ON THE CURRENT STUDY. TECHNICAL DOCUMENTATION: JOB ID: [id number] [employer]- All Rights Reserved Reading location - IP/workstation name: [email or web address]
--- NOTE | 2019-05-04 14:02 | PDOC DISCHARGE SUMMARY ---
General - Admit/Disc Date/PCP Admission Date/Primary Care Provider: 05/02/19 16:40 CANDIDA ROCK MD Discharge Date: 05/04/19 - Discharge Diagnosis (1) Calculus of right ureter Is this a current diagnosis for this admission?: Yes (2) Hydronephrosis, right Is this a current diagnosis for this admission?: Yes (3) Acute kidney injury Is this a current diagnosis for this admission?: Yes (4) T2DM (type 2 diabetes mellitus) Is this a current diagnosis for this admission?: Yes (5) Acute pyelonephritis Is this a current diagnosis for this admission?: Yes - Additional Information Prescriptions: Ciprofloxacin [Cipro] 500 mg PO Q12 #14 ml Tamsulosin HCl [Flomax 0.4 mg Cap.sr] 0.4 mg PO Q12A #60 cap.sr.24h Tramadol HCl/Acetaminophen [Ultracet 37.5 mg/325 mg Tablet] 1 each PO Q6 #60 tablet Home Medications: Ciprofloxacin [Cipro] 500 mg PO Q12 #14 ml 05/04/19 Dextrose 50%-Water [Dextrose Inj 50% Syringe (25 gm/50 ml)] 25 gm IV PRN PRN disp.syrin 05/04/19 Dextrose [Glutose 40% Gel 15 gm Tube] 30 gm PO PRN PRN tube 05/04/19 Glucagon,Human Recombinant [Glucagen Inj 1 mg Vial] 1 mg IM PRN PRN vial 05/04/19 Hydromorphone HCl/Pf [Dilaudid Inj/Pf 2 mg/ml Ampule] 2 mg IV Q4HP PRN vial 05/04/19 Insulin Lispro [Humalog Insulin (Lispro) 100 unit/mL] 0 - 12 unit SUBCUT ACHS unit 05/04/19 Lisinopril/Hydrochlorothiazide [Lisinopril-Hctz 20-25 mg Tab] 1 each PO DAILY 05/04/19 Metformin HCl [Glucophage 500 mg Tablet] 500 mg PO Q12 05/04/19 Montelukast Sodium [Singulair 10 mg Tablet] 10 mg PO QHS 05/04/19 Ondansetron HCl/Pf [Zofran Inj/Pf 4 mg/2 ml Sdv] 4 mg IV Q4HP PRN vial 05/04/19 Tamsulosin HCl [Flomax 0.4 mg Cap.sr] 0.4 mg PO Q12A #60 cap.sr.24h 05/04/19 Tramadol HCl/Acetaminophen [Ultracet 37.5 mg/325 mg Tablet] 1 each PO Q6 #60 tablet 05/04/19 History of Present Illness History of Present Illness: PADMINI MCARTHUR is a 58 year old female, She came to the office today for evaluation of right flank pain with radiation to the right iliac fossa, on examination in the office there was tenderness in the right iliac fossa, a kidney stone was suspected a stat CT scan of the abdomen and pelvis with no con trast was obtained, it demonstrated a 1.7 x 1 cm stone in the right upper third of the ureter causing marked right hydronephrosis and hydroureter the stone is at the level of the right L3 transverse process also found was right-sided perinephric stranding there was associated acute kidney injury she was admitted directly from the office into the hospital for the management of right pyelonephritis and kidney stone. Hospital Course Hospital Course: Patient was admitted for the management of acute pyelonephritis, right ureteric calculus associated with hydronephrosis and hydroureter. She was treated with IV antibiotic empirically meropenem, Flomax 0.4 mg p.o. every 12, IV fluids. The stone measures 1.7 cm, this makes the calculus unlikely to pass. There was associated acute kidney injury, this resolves with treatment. She will be discharged today to follow with urologist outpatient for possible lithotripsy or extraction of the kidney stone. Most calculus with pass if less than 10 mm in size but the stone she has is 1.7 cm in size, this makes it unlikely to pass without intervention. Physical Exam Vital Signs: Temp Pulse Resp BP Pulse Ox 97.4 F 57 L 18 148/66 H 100 05/04/19 11:50 05/04/19 11:50 05/04/19 11:50 05/04/19 11:50 05/04/19 11:50 Intake & Output 05/03/19 05/04/19 05/05/19 06:59 06:59 06:59 Intake Total 1440 3821 537 Output Total 700 1500 900 Balance 740 2321 -363 Weight 100.6 kg 103 kg General appearance: PRESENT: no acute distress, well-developed, well-nourished Head exam: PRESENT: atraumatic, normocephalic Eye exam: PRESENT: conjunctiva pink, EOMI, PERRLA Ear exam: PRESENT: normal external ear exam Mouth exam: PRESENT: moist, tongue midline Neck exam: PRESENT: full ROM Respiratory exam: PRESENT: clear to auscultation lorena Cardiovascular exam: PRESENT: RRR Pulses: PRESENT: normal dorsalis pedis pul, +2 pedal pulses bilateral Vascular exam: PRESENT: normal capillary refill GI/Abdominal exam: PRESENT: normal bowel sounds, soft Rectal exam: PRESENT: deferred Neurological exam: PRESENT: alert, awake, oriented to person, oriented to place, oriented to time, oriented to situation, CN II-XII grossly intact Psychiatric exam: PRESENT: appropriate affect, normal mood Skin exam: PRESENT: dry, intact, warm Results Laboratory Results: 05/04/19 05:33 05/04/19 05:33 05/04/19 05/04/19 05:33 05:33 WBC 6.4 RBC 4.62 Hgb 9.6 L Hct 30.6 L MCV 66 L MCH 20.7 L MCHC 31.3 L RDW 15.7 H Plt Count 255 Seg Neutrophils % 57.8 Lymphocytes % 28.1 Monocytes % 8.8 Eosinophils % 4.6 Basophils % 0.7 Absolute Neutrophils 3.7 Absolute Lymphocytes 1.8 Absolute Monocytes 0.6 Absolute Eosinophils 0.3 Absolute Basophils 0.0 Sodium 141.6 Potassium 4.5 Chloride 109 H Carbon Dioxide 27 Anion Gap 6 BUN 16 Creatinine 0.96 Est GFR ( Amer) > 60 Est GFR (Non-Af Amer) 59 L Glucose 129 H Calcium 9.4 Total Bilirubin 0.3 AST 16 ALT 19 Alkaline Phosphatase 62 Total Protein 6.5 Albumin 3.2 L Impressions: KUB X-Ray 05/04/19 00:00 IMPRESSION: NO SIGNIFICANT CHANGE IN THE LARGE RIGHT URETERAL CALCULUS. PREVIOUSLY SEEN SMALL RENAL CALCULI ARE DIFFICULT TO VISUALIZE ON THE CURRENT STUDY. Qualifiers - * PATIENT BEING DISCHARGED WITH ANY OF THE FOLLOWING DIAGNOSIS: No VTE patient discharged on overlapping Therapy?: No Reason(s) for not prescribing Overlap Therapy:: Not indicated Stroke Pt being discharged on Anti-thrombolytic therapy?: No Reason(s) for not prescribing Anti-thrombolytic therapy:: Not indicated Stroke Pt being discharged on Anti-coagulation therapy?: No Reason(s) for not prescribing Anti-coagulation therapy:: Not indicated Stroke Pt being discharged on Statins?: No Reason(s) for not prescribing Statins therapy:: Not indicated PA Pt being discharged on Aspirin therapy?: No Reason(s) for not prescribing Aspirin therapy:: Not indicated PA Pt discharged ACEI/ARBS?: No Reason(s) for not prescribing ACEI/ARBS:: Not indicated Acute Heart Failure - Is this a Heart Failure Patient?: No
[2019-05-04 14:14] VITALS: BP 134/79
== END 2019-05-04 14:36 | disposition home or self-care (01) | DRG 684 ==
LOC: 3N 16:40
PROVIDERS: ADMIT Internal Medicine; ATTEND Internal Medicine
DX: N17.9 Acute kidney failure, unspecified (principal); E11.9 Type 2 diabetes mellitus without complications; N13.6 Pyonephrosis; E78.5 Hyperlipidemia, unspecified; I10 Essential (primary) hypertension; F32.9 Major depressive disorder, single episode, unspecified; D64.9 Anemia, unspecified; N25.81 Secondary hyperparathyroidism of renal origin; Z79.899 Other long term (current) drug therapy; Z79.4 Long term (current) use of insulin; Z88.0 Allergy status to penicillin
CPT/HCPCS: 36415; 74018; 80048; 80053; 80076; 81001; 82962; 83036; 85025; 87040; 87086; J1170; J2185; J2405; J7030

== ENCOUNTER → 2019-05-02 | Outpatient (CLI) | payer BC ==
--- NOTE | 2019-05-02 15:50 | RADIOLOGY REPORT (SQ) ---
EXAM DESCRIPTION: CT ABD/PELVIS NO ORAL OR IV COMPLETED DATE/TIME: 05/02/2019 3:25 pm REASON FOR STUDY: R10.31 RIGHT LOWER QUADRANT PAIN R10.31 RIGHT LOWER QUADRANT PAIN COMPARISON: CT abdomen pelvis 03/16/2015 TECHNIQUE: CT scan of the abdomen and pelvis performed without intravenous or oral contrast. Images reviewed with lung, soft tissue, and bone windows. Reconstructed coronal and sagittal MPR images revi ewed. All images stored on PACS. All CT scanners at this facility use dose modulation, iterative reconstruction, and/or weight based d osing when appropriate to reduce radiation dose to as low as reasonably achievable (ALARA). [facility]: Dose Right [facility]: CareDose [facility]: Dose Right [facility]: Teradose 4D [facility]: [employer] RADIATION DOSE: CT Rad equipment meets quality standard of care and radiation dose reduction techniq ues were employed. CTDIvol: 15.8 mGy. DLP: 837 mGy-cm.mGy. LIMITATIONS: None. FINDINGS: In the right upper 3rd of the ureter, a 1.7 x 1 cm stone is present causing marked right h ydronephrosis and hydroureter. Stone is at the level of the right L3 transverse process, best shown on coronal image 52, stone measures 729 Hounsfield units. There is right-sided perinephric stranding and marked hydronephrosis. Nonobstructive right lower otoniel e less than 5 mm calculi are present. No other right ureteral stones are identified LOWER CHEST: No significant findings. No nodules or infiltrates. NON-CONTRASTED LIVER, SPLEEN, ADRENALS: Evaluation limited by lack of IV contrast. No identified sign ificant masses. Fatty infiltration of the liver PANCREAS: No masses. No peripancreatic inflammatory changes. GALLBLADDER: No identified stones by CT criteria. No inflammatory changes to suggest cholecystitis. RIGHT KIDNEY AND URETER: As above. LEFT KIDNEY AND URETER: No suspicious masses. Assessment limited by lack of IV contrast. There are nonobstructive intrarenal less than 5 mm calculi in the lower pole left kidney. No hydronephrosis o r hydroureter. AORTA AND RETROPERITONEUM: No aneurysm. No retroperitoneal masses or adenopathy. BOWEL AND PERITONEAL CAVITY: No obvious masses or inflammatory changes. No free fluid. APPENDIX: Normal. PELVIS, BLADDER, AND ABDOMINAL WALL:No abnormal masses. No free fluid. Bladder normal. Normal size f emale pelvic organs BONES: No significant findings. OTHER: No other significant finding. IMPRESSION: 1.7 x 1 cm calculus, right upper 3rd of the ureter at about the level of the right L3 tr ansverse process. This causes marked right hydronephrosis and upper hydroureter and right perinephri c stranding COMMENT: Quality ID # [id number]: Final reports with documentation of one or more dose reduction techniques (e.g., Automated exposure control, adjustment of the mA and/or kV according to patient size, use of iterative reconstruction technique) TECHNICAL DOCUMENTATION: JOB ID: [id number] [employer]- All Rights Reserved Reading location - IP/workstation name: [email or web address]
== END ==
LOC: WI 14:25
PROVIDERS: ATTEND Internal Medicine
DX: R10.31 Right lower quadrant pain (principal)
CPT/HCPCS: 74176; 82565

== ENCOUNTER → 2020-02-07 | Outpatient (CLI) | payer BC ==
--- NOTE | 2020-02-08 08:41 | RADIOLOGY REPORT (SQ) ---
EXAM DESCRIPTION: NM PARATHYROID IMAGING IMAGES COMPLETED DATE/TIME: 02/07/2020 2:46 pm REASON FOR STUDY: E21.0 PRIMARY HYPERPARATHYROIDISM E21.0 PRIMARY HYPERPARATHYROIDISM COMPARISON: Chest films 01/10/2019 Parathyroid imaging 01/11/2019 RADIONUCLIDE AND DOSE: 22 millicuries Tc-99m Sestamibi. The route of agent administration: Intravenous ADDITIONAL DRUGS AND DOSES: None. TECHNIQUE: Early and delayed images of the neck acquired following radionuclide administration. LIMITATIONS: None. FINDINGS: Immediate images demonstrate a focal area of increased uptake in the left neck, at or supe rimposed on the lower pole left lobe thyroid. This finding persists on the delayed 3 hour images and could represent a thyroid or parathyroid adenoma. This finding is unchanged from 01/11/2019 Remainder of the study demonstrates normal salivary and thyroid gland uptake. IMPRESSION: Persistent focus of increased sestamibi immediate and delayed accumulation over the left lower pole thyroid gland. This could represent a small thyroid or parathyroid adenoma. This is unc hanged from 01/11/2019 TECHNICAL DOCUMENTATION: JOB ID: [id number] 2010 [employer]- All Rights Reserved Reading location - IP/workstation name: [email or web address]
== END ==
LOC: RAD 11:08
PROVIDERS: ATTEND Internal Medicine
DX: E21.0 Primary hyperparathyroidism (principal)
CPT/HCPCS: 78070; A9500; Q9969

== ENCOUNTER → 2020-02-20 | Outpatient (CLI) | payer BC | LOC: OD 09:45 | PROVIDERS: ATTEND Surgery | DX: E21.3 Hyperparathyroidism, unspecified (principal); E83.52 Hypercalcemia | CPT/HCPCS: 36415; 82310; 83970 ==

== ENCOUNTER → 2020-03-26 | Outpatient (CLI) | payer BC | LOC: OD 09:28 | PROVIDERS: ATTEND Surgery | DX: E21.3 Hyperparathyroidism, unspecified (principal) | CPT/HCPCS: 36415; 82310; 83970 ==

== ENCOUNTER 2020-05-27 05:18 | Observation (INO) | payer BC ==
[2020-05-22 10:26] LABS: ANION GAP 7 (5-19); BLOOD UREA NITROGEN 15 mg/dL (7-20); CALCIUM 10.4 mg/dL (8.4-10.2); CARBON DIOXIDE 27 mmol/L (22-30); CHLORIDE 105 mmol/L (98-107); GLUCOSE 163 mg/dL (75-110); POTASSIUM 4.2 mmol/L (3.6-5.0)
--- NOTE | 2020-05-22 11:09 | RADIOLOGY REPORT (SQ) ---
EXAM DESCRIPTION: CHEST PA/LATERAL IMAGES COMPLETED DATE/TIME: 05/22/2020 11:02 am REASON FOR STUDY: PRE-OP COMPARISON: 01/10/2019 EXAM PARAMETERS: NUMBER OF VIEWS: two views TECHNIQUE: Digital Frontal and Lateral radiographic views of the chest acquired. RADIATION DOSE: NA LIMITATIONS: none FINDINGS: LUNGS AND PLEURA: No opacities, masses or pneumothorax. No pleural effusion. MEDIASTINUM AND HILAR STRUCTURES: No masses or contour abnormalities. HEART AND VASCULAR STRUCTURES: Heart normal size. No evidence for failure. BONES: No acute findings. HARDWARE: None in the chest. OTHER: No other significant finding. IMPRESSION: NO SIGNIFICANT RADIOGRAPHIC FINDING IN THE CHEST. TECHNICAL DOCUMENTATION: JOB ID: [id number] 2010 [employer]- All Rights Reserved Reading location - IP/workstation name: [email or web address]
--- NOTE | 2020-05-22 12:58 | EKG REPORT ---
SEVERITY:- BORDERLINE ECG - SINUS ARRHYTHMIA, RATE 49-64 LVH BY VOLTAGE : Confirmed by: Carlos Hurd MD 22-May-2020 12:57:42
[~2020-05-27 05:18] MED LIST changes: -ALBUTEROL SULFATE 0.083% NEB 2.5 MG/3 ML AMPUL NEB ONE; +CLINDAMYCIN 600 MG/D5W RTU 600 MG/50 ML RTUPB IV ONE; +CLINDAMYCIN 600 MG/D5W RTU 600 MG/50 ML RTUPB IV PRN; +LACTATED RINGERS 1000 ML IV PRN; +LIDOCAINE 0.5% INJ-PF (5 MG/ML) 50 ML SDV SUBCUT PRN
[2020-05-27 06:16] LABS: POTASSIUM 4.2 mmol/L (3.6-5.0)
[2020-05-27] MEDS ORDERED: FENTANYL CITRATE INJ/PF 250 MCG/5 ML AMPULE ONE (07:06)
[2020-05-27] MEDS ORDERED: EPHEDRINE SULFATE INJ 50 MG/1 ML AMPULE ONE (07:06)
[2020-05-27] MEDS ORDERED: MIDAZOLAM 2 MG/2 ML INJ ONE (07:06)
[2020-05-27] MEDS ORDERED: PROPOFOL INJ 200 MG/20 ML VIAL IV ONE (07:07)
[2020-05-27] MEDS ORDERED: MICROFIBRILLAR COLLAGEN 1 GM PACK ONE (07:58)
[2020-05-27] MEDS ORDERED: BUPIVACAINE HCL 0.25 % INJ/PF (2.5 MG/1 ML) 30 ML VIAL ONE (07:58)
[2020-05-27] MEDS ORDERED: MEPERIDINE HCL/PF INJ 25 MG/1 ML DISP.SYRIN IV PRN (08:06)
[2020-05-27] MEDS ORDERED: OXYCODONE-ACETAMINOPHEN 5-325 MG TABLET PO PRN ×2 (08:06)
[2020-05-27] MEDS ORDERED: DIPHENHYDRAMINE HCL 50 MG/ML VIAL IV PRN (08:06)
[2020-05-27] MEDS ORDERED: PROMETHAZINE HCL INJ 25 MG/1 ML VIAL IV PRN ×2 (08:06)
[2020-05-27] MEDS ORDERED: FENTANYL CITRATE INJ/PF 100 MCG/2 ML AMPUL IV PRN ×3 (08:06)
[2020-05-27] MEDS ORDERED: NORMAL SALINE 1000 ML 1,000 ML IV PRN (08:58)
[2020-05-27] MEDS ORDERED: MORPHINE SULFATE 10 MG/ML INJ IV PRN (08:58)
--- NOTE | 2020-05-27 09:10 | Operative Report ---
Operative Report DATE OF SURGERY: 05/27/20 PREOPERATIVE DIAGNOSIS: 1. Primary hyperparathyroidism. 2. Diabetes mellitus. 3. Obesity POSTOPERATIVE DIAGNOSIS: Same with parathyroid adenoma left lower neck OPERATION: 1. Neck exploration. 2. Left lower parathyroidectomy. 3. Ultrasound directed aspiration of left thyroid cyst SURGEON: JULIUS AMARAL PROFESSOR OF SPORT MANAGEMENT: LAURYN DE LOS SANTOS ANESTHESIA: GA TISSUE REMOVED OR ALTERED: Left lower parathyroid adenoma COMPLICATIONS: None ESTIMATED BLOOD LOSS: Scant INTRAOPERATIVE FINDINGS: See below PROCEDURE: Patient was evaluated the preop holding area where preoperative intact PTH level was drawn and resulted at 109 ng/dL. He was then taken to the main operating room and general anesthesia was induced. She was placed in the supine position arms tucked neck extended, shoulder blades elevated with a roll, and the neck prepped and draped in sterile fashion with Betadine Surgical plan and surgical timeout were conducted. A standard transcervical incision was made approximately 6 cm in length 3-1/2 cm cephalad to the sternal notch. Superior and inferior skin and platysma flaps were raised with electrocautery. Strap muscles were divided in midline uneventfully. The strap muscles were elevated off of the left thyroid lobe. The left lobe was gingerly elevated cephalad, and the areole or tissue below the inferior pole of the parathyroid gland was dissected free. We immediately saw a smooth , [id number] mass approximately 1 cm in diameter. Based on preoperative sestamibi scan showing a localization of retained activity in the left lower neck, and preoperative ultrasonography which showed a 1-1/2 cm smooth mass at the inferior pole of the left thyroid lobe, we felt that the mass we were now identifying was consistent with a parathyroid adenoma. It was therefore dissected out using a combination of small right angle, peanut dissection. The mass had a dominant vascular pedicle coming from the cephalad direction. The Mass had a small pouch of fat that it sat in. All of the findings were consistent with a parathyroid adenoma. We clipped the vascular pedicle with small hemoclips, and divided the specimen and removed it from the patient's neck. It measured out at approximately 1.5 cm. It was sent immediately to pathology where it was analyzed by Dr. Ruggiero who reported back to us in the operating room for the specimen was consistent with a hypercellular thyroid gland consistent with adenoma weighing 760 mg. Approximately 15 minutes later, a specimen was drawn by the astrophysics professor from the patient's right arm, venous blood from the antecubital fossa, and sent for rapid PTH intact level. We now proceeded with ultrasound directed aspiration of the left or right cyst previously identified on ultrasonography. This was done with real-time ultrasound. An 18-gauge needle was used to aspirate approximately 4 cc of serous fluid from the dominant midpole left thyroid cyst. The specimen was disposed of. As we are waiting for the results of this operative PTH level, the neck was closed after carefully inspecting for bleeding and there was none. Sponge and needle counts are correct. The strap muscles were approximated 2-0 Vicryl, the platysma proximated with 3-0 Vicryl, and the skin closed with skin glue. Patient tolerated procedure well. The patient was awakened from anesthesia, and extubated uneventfully and taken to the recovery room in stable condition. The intraoperative PTH level was pending at the time of this dictation. We felt that it was safe to awaken the patient and taken to the recovery room based on the intraoperative findings described above. The physician residential living assistant, Ms. Caldwell, provided assistance during this case by: Assisting with retracting tissue, instillation of local anesthesia and closure of skin incisions.
[2020-05-27] MEDS ORDERED: FENTANYL CITRATE INJ/PF 100 MCG/2 ML AMPUL ONE (11:00)
[2020-05-27] MEDS ORDERED: ROCURONIUM BROMIDE INJ 50 MG/5 ML VIAL IV ONE (14:02)
[2020-05-27] MEDS ORDERED: DEXAMETHASONE SOD PHOSPHATE INJ 4 MG/1 ML VIAL ONE (14:02)
[2020-05-27] MEDS ORDERED: GLYCOPYRROLATE 1 MG/5 ML VIAL ONE (14:02)
[2020-05-27] MEDS ORDERED: LIDOCAINE 2% INJ-PF (20 MG/ML) 2 ML AMPUL ONE (14:02)
[2020-05-27] MEDS ORDERED: SUCCINYLCHOLINE CHLORIDE INJ 200 MG/10 ML VIAL ONE (14:02)
[2020-05-27] MEDS ORDERED: NEOSTIGMINE METHYLSULFATE 10 MG/10 ML VIAL ONE (14:02)
[2020-05-27] MEDS ORDERED: ONDANSETRON HCL INJ/PF 4 MG/2 ML SDV ONE (14:02)
[2020-05-27] MEDS ORDERED: ACETAMINOPHEN 1,000 MG/100 ML RTUPB IV ONE (14:58)
[2020-05-27] MEDS: ACETAMINOPHEN 1,000 MG/100 ML RTUPB IV SCH ×2 (15:09→21:19)
[2020-05-27] MEDS ORDERED: ACETAMINOPHEN INJ/PF 1000 MG/100 ML SDV IV SCH (16:00)
[2020-05-27] MEDS ORDERED: ALBUTEROL SULFATE HFA (90 MCG/PUFF) 8 GM MDI (1 MDI/ER DISP) IH PRN (19:39)
[2020-05-28] MEDS: ACETAMINOPHEN 1,000 MG/100 ML RTUPB IV SCH ×2 (04:37→09:23)
[2020-05-28] MEDS ORDERED: METFORMIN HCL 500 MG TABLET PO SCH (08:00)
--- NOTE | 2020-05-28 09:33 | PDOC DISCHARGE SUMMARY ---
General - Admit/Disc Date/PCP Admission Date/Primary Care Provider: 05/27/20 05:18 CANDIDA ROCK MD Discharge Date: 05/28/20 - Discharge Diagnosis Final Diagnosis: Hypercalcemia secondary to hyperparathyroidism due to parathyroid adenoma Diabetes mellitus Obesity Hypertension History of pulmonary hypertension - Assessment Summary: The patient is 59-year-old Afro-[place] female with a history of multiple chronic medical problems was found to have hypercalcemia, hyperparathyroidism, positive sestamibi scan localizing an area of increased activity in the left lower neck, and concordant ultrasonography by Dr. Parnell demonstrating a small mass below the inferior pole of the left thyroid lobe consistent with parathyroid adenoma. The patient was brought through ambulatory surgery to the main operating room on May 27, 2020 which he underwent a neck exploration, removal of a 1.5 cm, 760mg parathyroid adenoma at the base of the left neck. Postoperatively she did well, had no drains and had adequate pain control. Her postoperative calcium normalized to 9.6 then 9.4 the following morning. Her PTH level normalized to 20 the evening of surgery, and the following morning it was a 41. The patient was felt to have had successful operation, was tolerating a diet, blood sugars were in the upper normal range and she was discharged home to follow-up with Dr. Parnell in 1 to 2 weeks. She will have her intact PTH and calcium levels drawn the day of visit. She is to resume her preoperative medications, diet, and activity. - Additional Information Resuscitation Status: Full Code Discharge Diet: As Tolerated Referrals: CANDIDA ROCK MD [Primary Care Provider] - Prescriptions: Ketorolac Tromethamine [Toradol 10 mg Tablet] 10 mg PO Q6HP PRN #14 tablet PRN Reason: Home Medications: Lisinopril/Hydrochlorothiazide [Lisinopril-Hctz 20-25 mg Tab] 1 each PO DAILY 05/04/19 Metformin HCl [Glucophage 500 mg Tablet] 500 mg PO Q12 05/04/19 Albuterol Sulfate [Albuterol Sulfate Hfa] 2 puff IH Q6HP PRN 05/22/20 Amlodipine Besylate [Norvasc 2.5 mg Tablet] 2.5 mg PO DAILY 05/22/20 Ketorolac Tromethamine [Toradol 10 mg Tablet] 10 mg PO Q6HP PRN #14 tablet 05/28/20 History of Present Illiness History of Present Illness: PADMINI MCARTHUR is a 59 year old female Physical Exam Vital Signs: Temp Pulse Resp BP Pulse Ox 97.6 F 80 18 131/63 H 100 05/28/20 07:43 05/28/20 07:43 05/28/20 07:43 05/28/20 07:43 05/28/20 07:43 Intake & Output 05/27/20 05/28/20 05/29/20 06:59 06:59 06:59 Intake Total 0 1825 Output Total 2350 Balance 0 -525 Weight 99.3 kg Results Laboratory Results: Sodium 139.1 mmol/L (137-145) 05/22/20 09:30 Potassium 4.2 mmol/L (3.6-5.0) 05/27/20 05:45 Chloride 105 mmol/L (98-107) 05/22/20 09:30 Carbon Dioxide 27 mmol/L (22-30) 05/22/20 09:30 Anion Gap 7 (5-19) 05/22/20 09:30 BUN 15 mg/dL (7-20) 05/22/20 09:30 Creatinine 0.79 mg/dL (0.52-1.25) 05/22/20 09:30 Est GFR ( Amer) > 60 (>60) 05/22/20 09:30 Est GFR (MDRD) Non-Af > 60 (>60) 05/22/20 09:30 Glucose 108 mg/dL (75-110) 05/27/20 05:45 POC Glucose 129 mg/dL (70-110) H 05/28/20 09:07 Calcium 9.4 mg/dL (8.4-10.2) 05/28/20 08:06 PTH Intact 41.6 pg/mL (10.0-65.0) 05/28/20 08:06 COVID-19 Source NASOPHARYNGEAL 05/22/20 09:25 COVID-19 (LILIA) NOT DETECTED 05/22/20 09:25 Impressions: Chest X-Ray 05/22/20 10:18 IMPRESSION: NO SIGNIFICANT RADIOGRAPHIC FINDING IN THE CHEST.
[2020-05-28] MEDS ORDERED: HYDROCHLOROTHIAZIDE 25 MG TABLET PO SCH (10:00)
[2020-05-28] MEDS ORDERED: (PENDING PHARMACY ID) (Lisinopril/Hydrochlorothiazide [Lisinopril-Hctz 20-25 Mg Tab] 1 EAC PO SCH (10:00)
[2020-05-28] MEDS ORDERED: LISINOPRIL 10 MG TABLET PO SCH (10:00)
[2020-05-28] MEDS ORDERED: AMLODIPINE BESYLATE 2.5 MG TABLET PO SCH (10:00)
[2020-05-28 11:01] VITALS: BP 130/60
== END 2020-05-28 12:47 | disposition home or self-care (01) ==
LOC: INOR 05:18 → INTOOBSV 05:18 → EDSTATUS 07:30 → 2N 11:25
PROVIDERS: ADMIT Surgery; ATTEND Surgery
DX: D35.1 Benign neoplasm of parathyroid gland (principal); E21.3 Hyperparathyroidism, unspecified; E11.9 Type 2 diabetes mellitus without complications; I10 Essential (primary) hypertension; E04.1 Nontoxic single thyroid nodule; E66.9 Obesity, unspecified; Z03.818 Encounter for observation for suspected exposure to other biological agents ruled out; Z86.79 Personal history of other diseases of the circulatory system; Z01.818 Encounter for other preprocedural examination; Z79.899 Other long term (current) drug therapy; Z79.84 Long term (current) use of oral hypoglycemic drugs; Z80.8 Family history of malignant neoplasm of other organs or systems; Z86.010 Personal history of colon polyps
CPT/HCPCS: 93005; 36415 ×3; 82962 ×2; 82310 ×2; 82947; 84132; 87635; 80048; 83970 ×2; 71046; 94799; 93010; 60500; 60300; J2250; J3490 ×5; J1100; J3010 ×2; J2710; J0330; J2405; J2704; J0131; C9803; G0378

== ENCOUNTER → 2020-06-08 | Outpatient (CLI) | payer BC | LOC: OD 09:40 | PROVIDERS: ATTEND Surgery | DX: Z09 Encounter for follow-up examination after completed treatment for conditions other than malignant neoplasm (principal); Z98.890 Other specified postprocedural states | CPT/HCPCS: 36415; 82310 ==

== ENCOUNTER → 2020-12-04 | Outpatient (CLI) | payer BC, OTHER ==
[2020-12-04 17:40] LABS: FREE T3 4.24 pg/mL (2.77-5.27); FREE T4 (FREE THYROXINE) 0.94 ng/dL (0.78-2.19)
[2020-12-04 17:54] LABS: THYROID STIMULATING HORMONE 1.65 uIU/mL (0.47-4.68)
== END ==
LOC: OD 16:20
PROVIDERS: ATTEND Surgery
DX: E05.90 Thyrotoxicosis, unspecified without thyrotoxic crisis or storm (principal)
CPT/HCPCS: 36415; 82310; 83970; 84439; 84443; 84481